=== PATIENT | male | born 1950 | race Caucasian/White ===

== ENCOUNTER → 2021-01-21 11:42 | Outpatient (CLI) | payer MEDICARE, SELFPAY | PROVIDERS: PCP Family Medicine; Visit Provider Nurse Practitioner Adult Health | DX: R97.20 Elevated prostate specific antigen [PSA] (principal) | CPT/HCPCS: 36415; 84153 ==

== ENCOUNTER → 2021-01-31 | Outpatient (CLI) | payer MEDICARE, SELFPAY ==
--- NOTE | 2021-01-31 | IMM_PTH ---
PATIENT: RAE ELLIOTT LOC: [facility] U#:[id number] AGE/SX: 71/M ROOM: RE01/31/[address]: Dr. Rosales Amezquita MD : 1950 BED: DIS: 01/31/2021 SPEC #: [id number] RECD: 02/01/21 12:26 STATUS: STEPHAN REQ #: [id number] NEY: 01/31/21 00:[address]: Rosales Amezquita DEPT: IMMUNOHISTOCHEMISTRY RECD BY: Betzy Shields ENTERED: 02/01/21 12:29 SP TYPE: IMMUNO OTHR DR: Dr. Aguilar Rojas DO Tissues: C - PROSTATE RIGHT Procedures: P40 (add) 34BE12 (initial) PHYSICIAN & INSTITUTION [place] [id number] SPECIMEN INFORMATION: Tissue Source: C - Right prostate, base, core biopsy Clinical Info: Elevated PSA Specimen Number: [id number] CPT code: 72663, 64273 METHODOLOGY: Deparaffinized sections of prefer/formalin-fixed tissue or PAP/DQ stained slides are incubated with monoclonal/polyclonal antibodies/oligonucleotide probes. Localization is made via biotin free immunoperoxidase method. Appropriate controls are performed and reacted as expected. Results on target cell population are indicated in the following table: RESULTS: ANTIBODY / CLONE RESULT Block C P40 (BC28) positive 34BE12 (34BE12) positive These tests were developed and their performance characteristics determined by [facility]. They may not have been cleared or approved by the U.S. Food and Drug Administration. The FDA has determined that such clearance or approval is not necessary. The above immunohistochemical/dualISH markers are ordered and reviewed by the Pathologist. INTERPRETATION: C. Right prostate, base, core biopsy: Negative for malignancy. PATTIE:dennys 02/04/2021
--- NOTE | 2021-01-31 09:30 | PROSBIL_PTH ---
PATIENT: RAE ELLIOTT LOC: [facility] U#:[id number] AGE/SX: 71/M ROOM: RE01/31/[address]: Dr. Rosales Amezquita MD : 1950 BED: DIS: 01/31/2021 SPEC #: [id number] RECD: 01/31/21 10:43 STATUS: STEPHAN REQ #: [id number] NEY: 01/31/21 09:[address]: Rosales Amezquita DEPT: SURGICAL PATHOLOGY RECD BY: Penelope Rodrigez ENTERED: 01/31/21 11:56 SP TYPE: PROST BX ZOYA DR: Dr. Aguilar Rojas DO Tissues: A - PROSTATE RIGHT B - PROSTATE RIGHT C - PROSTATE RIGHT D - PROSTATE LEFT E - PROSTATE LEFT F - PROSTATE LEFT Procedures: PROSTATE BX HEADER OPERATION: Prostate biopsy PRE-OP DIAGNOSIS: R97.20 TISSUE SUBMITTED: A - Right apex, B - Right mid, C - Right base, D - Left apex, E - Left mid, F - Left base MICROSCOPIC DIAGNOSIS A. Right prostate, apex, core biopsy: Prostatic tissue, negative for malignancy. B. Right prostate, mid, core biopsy: Prostatic tissue, negative for malignancy. Focal mild chronic inflammation. C. Right prostate, base, core biopsy: Prostatic tissue, negative for malignancy. See comment. D. Left prostate, apex, core biopsy: Prostatic adenocarcinoma. Levi grade: 3+4=7 Number of cores involved: 2/2 Proportion of tissue involved: ~30% Perineural invasion: Present. Greatest tumor length: 0.3 cm E. Left prostate, mid, core biopsy: Prostatic adenocarcinoma. Levi grade: 3+4=7 Number of cores involved: 1/1 Proportion of tissue involved: ~95% Perineural invasion: Present. Greatest tumor length: 1.3 cm F. Left prostate, base, core biopsy: Prostatic adenocarcinoma. Levi grade: 3+4=7 Number of cores involved: 1/1 Proportion of tissue involved: ~95% Perineural invasion: Present. Greatest tumor length: 1.2 cm SJ:dennys 02/01/2021 COMMENT C. Immunohistochemistry ([id number]) supports the above diagnosis. MICROSCOPIC DESCRIPTION Slides are reviewed. GROSS DESCRIPTION A - Received is one container designated prostate, right apex. The specimen consists of one elongated fragment of light dodge-white soft tissue measuring 1.5 cm in length and 0.1 cm in diameter. The specimen is totally submitted in one cassette. B - Received is one container designated prostate, right mid. The specimen consists of one elongated fragment of light dodge-white soft tissue measuring 1.2 cm in length and 0.1 cm in diameter. The specimen is totally submitted in one cassette. C - Received is one container designated prostate, right base. The specimen consists of one elongated fragments of light dodge-white soft tissue measuring 1.2 cm in length and 0.1 cm in diameter. The specimen is totally submitted in one cassette. D - Received is one container designated prostate, left apex. The specimen consists of two elongated fragments of light dodge-white soft tissue measuring 0.3 and 0.7 cm in length and 0.1 cm in diameter. The specimen is totally submitted in one cassette. E - Received is one container designated prostate, left mid. The specimen consists of one elongated fragment of light dodge-white soft tissue measuring 1.5 cm in length and 0.1 cm in diameter. The specimen is totally submitted in one cassette. F - Received is one container designated prostate, left base. The specimen consists of one elongated fragments of light dodge-white soft tissue measuring 1.5 cm in length and 0.1 cm in diameter. The specimen is totally submitted in one cassette. / SJ:rg 01/31/21 TC:0 [facility]: [id number]
== END | disposition home or self-care (01) ==
LOC: LABSPEC 10:58
PROVIDERS: PCP Family Medicine; Referring Provider Urology; Visit Provider Urology
DX: R97.20 Elevated prostate specific antigen [PSA] (principal)
CPT/HCPCS: 88305; 88341; 88342; G0416

== ENCOUNTER → 2021-02-08 10:14 | Outpatient (CLI) | payer MEDICARE, SELFPAY ==
--- NOTE | 2021-02-08 10:18 | NM_ITS ---
CLINICAL: 71-year-old male with reported history of carcinoma of the prostate. WHOLE BODY 99m Tc MDP RADIONUCLIDE BONE SCINTIGRAPHY COMPARISON: CT of the abdomen-pelvis report 02/08/2021 FINDINGS: Following the intravenous administration of 25.0 mCi of 99m Tc MDP, whole body bone images reveal: 1. Increased radiopharmaceutical concentration is identified in the acromioclavicular and sternoclavicular compartments of both shoulders, glenohumeral compartment of the right shoulder, bilateral wrists, elbows bilaterally, the right knee, fifth lumbar vertebra posteriorly on the left and right, the pubic symphysis. 2. The remaining skeletal structures are scintigraphically unremarkable with normal-appearing renal images and urinary bladder activity identified. Enhanced uptake is defined in the soft tissue compartment of the right hemipelvis likely representing dystrophic calcification. NM/Bone Scan Whole Body IMPRESSION: 1. The increase in radiopharmaceutical concentration identified in the bilateral shoulders, both wrists, right and left elbows, the right knee, fifth lumbar vertebra and pubic symphysis is most consistent with degenerative arthritis. Plain film radiography correlation may be of benefit in the region of the pubic symphysis. 2. There is no definitive typical scintigraphic evidence of diffuse axial skeletal metastatic disease on the current examination. Electronically Signed: Frederic Minaya DO at 10:30 EDT Tel , Service support ,
--- NOTE | 2021-02-08 10:30 | CT_ITS ---
STUDY: CT ABDOMEN AND PELVIS WITH CONTRAST REASON FOR EXAM: Male, 71 years old. MALIGNANT NEOPLASM OF PROSTATE RADIATION DOSAGE (If Supplied By Facility): CTDIvol = ( 9.75 ) mGy, DLP = ( 799.02 ) mGycm TECHNIQUE: Transaxial images were obtained from the dome of the diaphragm to the symphysis pubis without oral contrast. IV 100mL Isovue-300 was administered. Sagittal and coronal images were reconstructed. Individualized dose optimization techniques were used for this CT. COMPARISON: None. FINDINGS: 2 mm calcific granuloma in the anterior aspect of the right middle lobe. Mild degree of scarring in the anterior aspect of the left lower lobe. The visualized portions of the heart are within normal limits. Normal liver. Normal gallbladder and extrahepatic biliary system. There are multiple benign calcified granulomata of the spleen. Normal pancreas. Normal bilateral adrenal glands. Normal right kidney. Normal left kidney. There is a small hiatal hernia. Normal small intestine. Normal colon. The appendix is visualized and appears normal. There is diffuse atherosclerotic calcification of the abdominal aorta, without a demonstrated aneurysm. Normal inferior vena cava. Normal retroperitoneum. Diffuse circumferential wall thickening of the urinary bladder. Marked enlargement of the prostate. The prostate measures 7.3 cm x 5.5 cm. This causes indentation at the bladder base. I cannot rule out a polypoid lesion at the bladder base. Normal abdominal wall. There are diffuse degenerative changes of the visualized lumbar spine. Minimal loss of height of the superior endplate of the L4 vertebrae. CT/Abdomen/Pelvis W IV Cont ONLY IMPRESSION: Marked degree of enlargement of the prostate with indentation at the bladder base. Diffuse bladder wall thickening. Electronically Signed: Kadeem Guardado MD at 13:42 EDT , Service support ,
[2021-02-08 13:35] LABS: CREATININE FINGERSTICK 0.6 mg/dL (0.70-1.30); EGFR FINGERSTICK > 60.0000 mL/min (>60)
== END ==
PROVIDERS: PCP Family Medicine; Referring Provider Urology; Visit Provider Urology
DX: C61 Malignant neoplasm of prostate (principal)
CPT/HCPCS: 74177; 78306; A9503; Q9967; A4216

== ENCOUNTER → 2021-12-16 | Outpatient (CLI) | payer MEDICARE, SELFPAY ==
--- NOTE | 2021-12-16 07:39 | EKG12_ITS ---
Test Reason : PREOP Blood Pressure : / mmHG Vent. Rate : 056 BPM Atrial Rate : 056 BPM P-R Int : 120 ms QRS Dur : 086 ms QT Int : 414 ms P-R-T Axes : 000 041 053 degrees QTc Int : 399 ms Ectopic Atrial Bradycardia Confirmed by ALONDRA RICK, ALISA ([id number]), multimedia editor ALISA العراقي ([id number]) on 12/17/2021 7:39:39 AM Referred By: Reid Martínez Confirmed By:ALISA CANTU MD
[2021-12-16 08:22] LABS: Hemoglobin 13.2 g/dL (13.0-16.5); Mean Corp Hgb Conc 32.2 g/dL (32-36); Mean Corpuscular Hgb 29.1 pg (27.0-32.0); Mean Corpuscular Volume 90.3 fL (80-94); Mean Platelet Vol. 9.6 fl (6.2-12.0); Platelet Count 234 K/mm3 (150-450); RBC Distribution Width CV 12.7 % (11.6-14.6); RBC Distribution Width SD 41.8 fl (35.1-43.9); Red Blood Count 4.54 M/mm3 (4.6-6.2); White Blood Count 4.6 K/mm3 (4.4-11.0)
[2021-12-16 08:51] LABS: Anion Gap 5 (5-15); BUN 18 mg/dL (7-18); Calcium,Total 8.6 mg/dL (8.5-10.1); Chloride 104 mmol/L (98-107); Creatinine, Serum 0.86 mg/dL (0.70-1.30); EST Glomerular Filtration Rate 94 mL/min (>60); Est Glom Filt Rate - Afr Amer 114 mL/min (>60); Glucose 95 mg/dL (74-106); Potassium 4.3 mmol/L (3.5-5.1); Sodium Level 138 mmol/L (136-145)
== END | disposition home or self-care (01) ==
LOC: PSN 07:35
PROVIDERS: PCP Family Medicine; Referring Provider Otolaryngology; Visit Provider Otolaryngology
DX: Z01.810 Encounter for preprocedural cardiovascular examination (principal)
CPT/HCPCS: 36415; 80048; 85027; 93005

== ENCOUNTER → 2023-06-08 | Outpatient (CLI) | payer MEDICARE, SELFPAY ==
--- OUTSIDE RECORDS SUMMARY | 2023-06-08 09:07 | XMS RPT_ITS | CCD ---
Author Name Unknown Address [address] [place] [address] Organization [facility] Results Test Name Value Interpretation Reference Range Facil ity Summary Purpose Family History No Family History Records Found Advance Directives No Advanced Directives Records Found Additional Source Comments (unrecognized sect ion and content) No Status Records Found INFORMATION SOURCE (unrecogn ized section and content) FOR RECORDS PERTAINING TO PATIENTS WHO ARE OR HAVE BEEN ENROLLED IN A CHEMICAL DEPENDENCY/SUBSTANCEABUSE PROGRAM, SOME INFORMATION MAY BE OMITTED. This clinical summary was aggregated from multiple sources. Caution should be exercised in using it in the provision of clinical care. This summary normalizes information from multiple sources, and as a consequence, information in this document may materially change the coding, format and clinical context of patient data. In addition, data may be omitted in some cases. CLINICAL DECISIONS SHOULD BE BASED ON THE PRIMARY CLINICAL RECORDS. [employer] provides no warranty or guarantee of the accuracy or completeness of information in this document.
== END | disposition home or self-care (01) ==
LOC: LAB 08:45
PROVIDERS: PCP Family Medicine; Referring Provider Urology; Visit Provider Urology
DX: C61 Malignant neoplasm of prostate (principal)
CPT/HCPCS: 36415; 84153

== ENCOUNTER → 2023-06-16 | Outpatient (CLI) | payer MEDICARE, SELFPAY ==
--- NOTE | 2023-06-16 09:00 | PET_ITS ---
EXAMINATION: F18 PSMA PET-CT INDICATIONS: A 73-year-old male with history of primary prostate carcinoma presenting for apparent initial staging examination. COMPARISON: None available INDEX LESION SIZE SUV PROMISE SCORE INTERPRETATION Left and right periclavicular region 17.3 mm 19.4 3 Fulfills quantitative criteria for viable neoplasm. Mediastinum and bilateral thoracic perihilum 22.4 mm 21.36 3 Fulfills quantitative criteria for viable neoplasm. Prostate gland 23.5 mm 44.7 3 Fulfills quantitative criteria for viable neoplasm. Seminal vesicles, rectum 54.1 mm 23.32 3 Fulfills quantitative criteria for viable neoplasm Abdominal retroperitoneum and bilateral hemipelvis 40.3 mm 29.9 3 Fulfills quantitative criteria for viable neoplasm. Multifocal skeletal structures 18.56 2 Quantitative criteria for viable neoplasm are fulfilled. TECHNIQUE: Following the intravenous administration of 9.35 mCi of PSMA-Pylarify via the left hand, image acquisitions of the head, neck, chest, abdomen and pelvis to the level of the mid thigh at 73 minutes post-tracer distribution reveal: The examination was interpreted using the EANM (Dagmar et al., Journal of Nuclear Medicine Molecular Imaging 44:1622, 2017) and PROMISE (Eilisa et al., Journal of Nuclear Medicine 59:469, 2018) interpretive criteria. HEIGHT: 70 inches. WEIGHT: 157 lbs. PSMA expression score PROMISE criteria: High (3): SUV ? parotid-salivary gland, intermediate (2): SUV ? liver, low (1): > blood pool, < liver, (0): < blood pool. SUV reference values: Parotid glands: 20.13 Normal liver parenchyma: 6.2 Blood pool: 2.0 FINDINGS: Head/Neck: Symmetric tracer concentration is defined in the bilateral parotid and submandibular glands, the nasal cavity. There is no evidence of abnormal increased radiopharmaceutical concentration within the context of the cranial vault. CHEST: Facilitated tracer uptake is noted in the bilateral periclavicular regions. The calculated maximum standard uptake value is 19.4. The PROMISE score approximates 3. The maximum axial diameter of the largest metabolic, morphologic abnormality is 17.3 mm. Facilitated uptake is noted in the pre-subcarinal mediastinum and bilateral thoracic perihilum generating a calculated maximum standard uptake value of 21.36. The PROMISE score is 3. The maximum axial diameter of the largest corresponding soft tissue density is 22.[address] findings are as follows. Calcified soft tissue densities are ametabolic. Atherosclerotic calcification is defined in the thoracic aorta without evidence of dilatation, aneurysm formation. Coronary arterial calcification is observed. There are no parenchymal densities-nodules defined in the right and left hemithorax with quantitative significant increased FDG uptake. Abdomen/Pelvis: Facilitated uptake is noted in the prostate gland to the right of the midline extending from the mid gland to base. The calculated maximum standard uptake value is 44.7. The PROMISE score is 3. The maximum axial diameter of the metabolic abnormality is 23.5 mm. Enhanced tracer is identified in the lower pelvis associated with the seminal vesicle to the left and right of midline and rectal vault. The calculated maximum standard uptake value is 23.32. The PROMISE score is 3. The maximum axial diameter of the metabolic, morphologic abnormality is 54.1 mm. There is augmentation radiopharmaceutical observed in in the upper abdomen retrocrural in distribution and upper-lower abdominal retroperitoneum and bilateral hemipelvis generating a calculated maximum standard uptake value of 29.9. The PROMISE score is 3. The maximum axial diameter of the largest metabolic, morphologic abnormality is 40.3 mm. Physiologic tracer uptake is manifest in the hepatic and splenic parenchyma, bilateral renal units, urinary bladder, and visualized intestinal tract. Abdomen and pelvis CT findings are as follows. There is atherosclerotic calcification defined in the abdominal aorta without evidence of dilatation-aneurysm formation. Pelvic arterial calcification is observed. Right and left inguinal soft tissue densities are ametabolic. Calcification is demonstrated in the base of the prostate gland to the left and right of midline. Calcified granuloma formation is noted within the splenic parenchyma. Skeletal: Facilitated uptake is noted in the axial skeleton multifocal in presentation generating a calculated maximum standard uptake value of 18.56. The PROMISE score is 2. PET/PET/CT Tumor WB Initial IMPRESSION: 1. ABNORMAL EXAMINATION INDICATIVE OF MALIGNANT-VIABLE NEOPLASM. 2. Increased tracer demonstrated in the left and right periclavicular regions fulfills quantitative criteria for viable neoplasm. 3. Enhanced forming labeled radiopharmaceutical visualized in the mediastinal structures and bilateral thoracic perihilum fulfills quantitative criteria for malignant transformation. 4. Facilitated uptake noted in the prostate gland, the rectum, and seminal vesicles fulfills quantitative criteria for viable neoplastic infiltration. 5. Increased radiotracer in the abdominal retroperitoneum and bilateral hemipelvis fulfills quantitative criteria for viable neoplasia. 6. Osseous skeletal hypermetabolic foci fulfills quantitative criteria for viable osseous neoplastic disease. Electronic Signature Frederic Minaya D.O. Accurate Quantification of SUVs and standardized PROMISE scores for this report are calculated using the exclusive [employer], ([place]. Patent No. [phone] [place] patent [phone] ). Standardization and correction of the FDG SUV metric exclusively available with [employer] intellectual property, allow for vendor non-specific objective quantitative sequential FDG PET-CT comparison and otherwise unobtainable optimization of the sensitivity and specificity of the examination. https://[employer] Electronically Signed: Frederic Minaya DO at 15:07 EST ,
--- OUTSIDE RECORDS SUMMARY | 2023-06-16 09:07 | XMS RPT_ITS | CCD ---
Author Name Unknown Address [address] [place] [address] Organization [facility] Results Test Name Value Interpretation [...] BE BASED ON THE PRIMARY CLINICAL RECORDS. [employer] provides no warranty or guarantee of the accuracy or completeness of information in this document.
== END | disposition home or self-care (01) ==
PROVIDERS: PCP Family Medicine; Referring Provider Urology; Visit Provider Urology
DX: C61 Malignant neoplasm of prostate (principal)
CPT/HCPCS: 78816; A9595

== ENCOUNTER → 2023-08-15 | Outpatient (CLI) | payer MEDICARE, SELFPAY ==
[2023-08-15 10:41] LABS: Hematocrit 39.2 % (40-54); Hemoglobin 12.6 g/dL (13.0-16.5); Mean Corp Hgb Conc 32.1 g/dL (32-36); Mean Corpuscular Volume 87.1 fL (80-94); Mean Platelet Vol. 9.8 fl (6.2-12.0); Platelet Count 239 K/mm3 (150-450); RBC Distribution Width CV 13.2 % (11.6-14.6); RBC Distribution Width SD 41.9 fl (35.1-43.9); White Blood Count 5.5 K/mm3 (4.4-11.0)
[2023-08-15 11:20] LABS: Anion Gap 4 (5-15); BUN 27 mg/dL (7-18); BUN/Creat Ratio 27.6 RATIO (10-20); Calcium,Total 9.1 mg/dL (8.5-10.1); Chloride 107 mmol/L (98-107); Creatinine, Serum 0.98 mg/dL (0.70-1.30); EST Glomerular Filtration Rate 80 mL/min (>60); Est Glom Filt Rate - Afr Amer 97 mL/min (>60); Glucose 101 mg/dL (74-106); Sodium Level 138 mmol/L (136-145)
== END | disposition home or self-care (01) ==
PROVIDERS: PCP Family Medicine; Referring Provider Urology; Visit Provider Urology
DX: R97.20 Elevated prostate specific antigen [PSA] (principal)
CPT/HCPCS: 36415; 80048; 84153; 85027

== ENCOUNTER → 2023-09-30 | Outpatient (CLI) | payer MEDICARE, SELFPAY ==
[2023-09-30 18:20] LABS: CRP < 2.90 mg/L (0.0-3.0)
[2023-10-02 15:08] LABS: Endomysial Antibody IgA Negative (Negative); Immunoglobulin A 116 mg/dL (61-437); t-Transglutaminase IgA <2 U/mL (0-3)
== END | disposition home or self-care (01) ==
LOC: LAB 14:15 → MTLAB 15:37
PROVIDERS: PCP Family Medicine; Referring Provider Urology; Visit Provider Urology
DX: R19.7 Diarrhea, unspecified (principal); R97.20 Elevated prostate specific antigen [PSA]
CPT/HCPCS: 36415; 82784; 83516; 84153; 86140; 86255

== ENCOUNTER → 2023-10-02 | Outpatient (CLI) | payer MEDICARE, SELFPAY | END | disposition home or self-care (01) | LOC: MTLAB 08:24 | PROVIDERS: PCP Family Medicine; Referring Provider Internal Medicine Gastroenterology; Visit Provider Internal Medicine Gastroenterology | DX: R19.7 Diarrhea, unspecified (principal) | CPT/HCPCS: 82705; 83993 ==

== ENCOUNTER 2023-11-14 12:53 | Emergency (ER) | payer MEDICARE, SELFPAY ==
[2023-11-14 12:54] VITALS: BP 132/92; PULSE 62; RESP 10; TEMP 35.6; O2SAT 95; BMI 24.0
--- NOTE | 2023-11-14 13:02 | EKG12_ITS ---
Test Reason : SYNCOPE Blood Pressure : / mmHG Vent. Rate : 061 BPM Atrial Rate : 061 BPM P-R Int : 094 ms QRS Dur : 082 ms QT Int : 456 ms P-R-T Axes : 000 024 030 degrees QTc Int : 459 ms Sinus rhythm with sinus arrhythmia with short NE Otherwise normal ECG Confirmed by KY RICK, LESLEY ([id number]), newspaper editor managing FLORENTIN SHEPHERD ([id number]) on 11/17/2023 2:14:57 PM Referred By: Confirmed By:SEPIDEH MCPHERSON MD
--- NOTE | 2023-11-14 13:02 | RAD_ITS ---
HISTORY: cough. TECHNIQUE: XR Chest 2 Views. COMPARISON: None. FINDINGS: CARDIOMEDIASTINAL BORDERS: Cardiac silhouette within normal limits in size. Mediastinal contour unremarkable. LUNGS: Mild linear bibasilar opacities. PLEURA: No pleural effusion or pneumothorax seen. OSSEOUS STRUCTURES: Degenerative change. RAD/Chest PA and Lateral IMPRESSION: Mild bibasilar atelectasis or inflammation. Electronically Signed: Tanya Shaver MD at 14:04 EDT ,
--- NOTE | 2023-11-14 13:03 | EX.ED.DYSGE1 ---
HPI <MADELINE Bolanos - Last Filed: 11/14/23 14:58> History of Present Illness Chief Complaint: Syncope Narrative Narrative: Patient is a 73-year-old male with history of prostate cancer who is currently being treated by [facility] and also goes to [place] and receives treatment there. Patient states he currently has an implant in from the [place] clinic. Patient states today, he was able to get up, he felt well, he biked to a flea market, he did not eat breakfast which is what he normally does, then when he sat down to eat lunch, he felt dizzy, developed diaphoresis, and thought he was going to pass out. Secondary to him not feeling well, the patrons at the restaurant called the ambulance. Patient states he feels slightly better now. He does feel slightly weak. Denies any chest pain, shortness of breath. PFSH <MADELINE Bolanos - Last Filed: 11/14/23 14:58> [facility]LY [facility], [facility] Medical History (Updated 11/14/23 @ 14:58 by MADELINE Bolanos) Prostate cancer Home Medications ?Medication ?Instructions ?Recorded ?Last Taken ?Type NK 11/14/23 Unknown History Allergy/AdvReac Type Severity Reaction Status Date / Time No Known Allergies Allergy Verified 11/14/23 12:54 Social History Smoking Status: Never smoker ROS <MADELINE Bolanos - Last Filed: 11/14/23 14:58> ROS ED ROS Narrative Constitutional: Negative for fever, chills, weight loss, weakness Eyes: Negative for vision loss, vision change, double vision ENT: Negative for any sore throat, ear pain, congestion Cardiovascular: Negative for any chest pain, tightness, palpitations Respiratory: Negative for any cough, sputum production, hemoptysis, dyspnea, dyspnea on exertion, orthopnea Gastrointestinal: Negative for any abdominal pain, nausea, vomiting, diarrhea, constipation, blood in stool, blood in vomit : Negative for any urinary frequency, dysuria, retention, blood in urine Muscle skeletal: Negative for any neck pain, back pain Neurological: Negative for any headache, syncope. Positive for dizziness, near syncope Skin: Negative for any rashes, itching, abrasions, lacerations Psychiatric: Negative for any depression, anxiety, stress, suicidal ideation, homicidal ideation Hematologic: Negative for any excessive bruising, easy bleeding EXAM <MADELINE Bolanos - Last Filed: 11/14/23 14:58> Physical Exam Narrative Exam Narrative: Vital signs reviewed. Vital signs are stable, patient is in no obvious distress. Patient dates he feels generally normal. HEET: Head normocephalic atraumatic, TMs clear bilaterally. Posterior pharynx is clear, moist mucous membranes. Nares clear bilaterally. Neck: Supple with no lymphadenopathy or tenderness. No signs of meningismus. Cardiac: Regular rate and rhythm no murmurs gallops or rubs, equal peripheral pulses bilaterally. Respiratory: Lungs clear to auscultation bilaterally. No chest tenderness. Abdomen: Soft, nontender, nondistended. No abdominal bruit or pulsatile masses. No hepatosplenomegaly Extremities: No peripheral edema, no signs of gross trauma or deformity. Active full range of motion of all extremities. Neuro: Cranial nerves II through XII intact, no focal neurological deficits. Skin: Clean dry and intact with no rash, purpura, petechiae, vesicles or pustules. Backs/flank: No CVA tenderness, no midline spinal tenderness, no deformity. Psych: Normal mood and affect. No SI, HI or acute psychosis. Const Vital Signs: 11/14/23 12:54 11/14/23 12:58 11/14/23 13:53 Temperature 96.1 F L Temperature Source Oral Pulse Rate 62 57 L Respiratory Rate 10 L 14 Respiratory Effort Normal Respiratory Pattern Normal Blood Pressure 132/92 H 124/77 H Blood Pressure Mean 105 92 Pulse Ox 95 97 Oxygen Delivery Method Room Air 11/14/23 14:00 11/14/23 14:50 Temperature 97.7 F L Temperature Source Pulse Rate 57 L 62 Respiratory Rate 16 14 Respiratory Effort Respiratory Pattern Blood Pressure 124/77 H 124/77 H Blood Pressure Mean 92 92 Pulse Ox 98 98 Oxygen Delivery Method Room Air <Dr. Camilo Quiles, - Last Filed: 11/14/23 17:48> Physical Exam Const Vital Signs: 11/14/23 12:54 11/14/23 12:58 11/14/23 13:53 Temperature 96.1 F L Temperature Source Oral Pulse Rate 62 57 L Respiratory Rate 10 L 14 Respiratory Effort Normal Respiratory Pattern Normal Blood Pressure 132/92 H 124/77 H Blood Pressure Mean 105 92 Pulse Ox 95 97 Oxygen Delivery Method Room Air 11/14/23 14:00 11/14/23 14:50 Temperature 97.7 F L Temperature Source Pulse Rate 57 L 62 Respiratory Rate 16 14 Respiratory Effort Respiratory Pattern Blood Pressure 124/77 H 124/77 H Blood Pressure Mean 92 92 Pulse Ox 98 98 Oxygen Delivery Method Room Air [facility] <Umang RuizMADELINE - Last Filed: 11/14/23 14:58> [facility] Lab Data Labs: Laboratory Results - last 24 hr 11/14/23 11/14/23 13:05 14:00 WBC 4.4 RBC 4.16 L Hgb 12.0 L Hct 36.9 L MCV 88.7 MCH 28.8 MCHC 32.5 RDW Std Deviation 41.8 RDW Coeff of Kathy 12.8 Plt Count 187 MPV 9.2 Immature Gran % (Auto) 0.700 Neut % (Auto) 62.0 Lymph % (Auto) 24.0 Russell % (Auto) 11.0 H Eos % (Auto) 1.8 Baso % (Auto) 0.5 Absolute Neuts (auto) 2.7 Absolute Lymphs (auto) 1.05 Nucleated RBC % 0 Sodium 140 Potassium 4.0 Chloride 110 H Carbon Dioxide 27.0 Anion Gap 3 L BUN 25 H Creatinine 1.13 Estim Creat Clear Calc 61.91 Est GFR (MDRD) Af Amer 82 Est GFR (MDRD) Non-Af 68 BUN/Creatinine Ratio 22.1 H Glucose 126 H Calcium 9.2 Troponin I High Sens 7 Urine Color Yellow Urine Clarity Clear Urine pH 5.0 Ur Specific [place] 1.020 Urine Protein 15 H Urine Glucose (UA) Normal Urine Ketones Negative Urine Occult Blood Negative Urine Nitrite Negative Urine Bilirubin Negative Urine Urobilinogen Normal Ur Leukocyte Esterase Negative Urine RBC 0 SEEN Urine WBC 0-5 SEEN Ur Squamous Epith Cells 0 SEEN Urine Bacteria 0 SEEN Urine Mucus 0 SEEN Radiography Diagnostic Testing: Clinical Impression(s) from Imaging Studies Chest X-Ray 11/14/23 13:02 IMPRESSION: Mild bibasilar atelectasis or inflammation. Electronically Signed: Tanya Shaver MD at 14:04 EDT , EKG Sinus rhythm with sinus arrhythmia: Attestation: I personally reviewed and interpreted this EKG as follows: Comments: Sinus rhythm with sinus arrhythmia, rate of 61 bpm, NE interval 94 ms, QRS duration 82 ms, no acute ST elevation, no acute infarct noted. Treatment and Re-Evaluation :: Differential diagnosis includes however is not limited to: Near syncope, PE, ACS, SD, electrolyte abnormality, dehydration Patient appears to be in no obvious distress, vital signs are stable patient is nontoxic-appearing. Presenting to the emergency department with complaints of a near syncopal episode while at a restaurant. Speaking with the patient, he says he does normally eat breakfast however today he did not. He did bike to a flea market, is also hot outside. Patient will receive a cardiac workup, as well as IV fluids. Patient will be reevaluated. Patient CBC was stable. Slightly anemia however this is chronic. Patient's chemistries were unremarkable, creatinine was 1.13, patient's glucose 126 with a troponin of 7 which is negative. EKG was unremarkable. No evidence of any ACS or SD. Urinalysis was negative for any infection. After IV fluids, send in the ED, patient felt much better. I believe this is likely due to the patient exerting himself, the hot sun, as well as not eating and drinking normally. Patient is happy with the plan of care, feels well to discharge. Will return for any worsening symptoms. <Dr. Camilo Quiles, DO - Last Filed: 11/14/23 17:48> [facility] Lab Data Labs: Laboratory Results - last 24 hr 11/14/23 11/14/23 13:05 14:00 WBC 4.4 RBC 4.16 L Hgb 12.0 L Hct 36.9 L MCV 88.7 MCH 28.8 MCHC 32.5 RDW Std Deviation 41.8 RDW Coeff of Kathy 12.8 Plt Count 187 MPV 9.2 Immature Gran % (Auto) 0.700 Neut % (Auto) 62.0 Lymph % (Auto) 24.0 Russell % (Auto) 11.0 H Eos % (Auto) 1.8 Baso % (Auto) 0.5 Absolute Neuts (auto) 2.7 Absolute Lymphs (auto) 1.05 Nucleated RBC % 0 Sodium 140 Potassium 4.0 Chloride 110 H Carbon Dioxide 27.0 Anion Gap 3 L BUN 25 H Creatinine 1.13 Estim Creat Clear Calc 61.91 Est GFR (MDRD) Af Amer 82 Est GFR (MDRD) Non-Af 68 BUN/Creatinine Ratio 22.1 H Glucose 126 H Calcium 9.2 Troponin I High Sens 7 Urine Color Yellow Urine Clarity Clear Urine pH 5.0 Ur Specific [place] 1.020 Urine Protein 15 H Urine Glucose (UA) Normal Urine Ketones Negative Urine Occult Blood Negative Urine Nitrite Negative Urine Bilirubin Negative Urine Urobilinogen Normal Ur Leukocyte Esterase Negative Urine RBC 0 SEEN Urine WBC 0-5 SEEN Ur Squamous Epith Cells 0 SEEN Urine Bacteria 0 SEEN Urine Mucus 0 SEEN Radiography Diagnostic Testing: Clinical Impression(s) from Imaging Studies Chest X-Ray 11/14/23 13:02 IMPRESSION: Mild bibasilar atelectasis or inflammation. Electronically Signed: Tanya Shaver MD at 14:04 EDT Reading Location ID and State: [facility] / [place] Tel , Service support , Treatment and Re-Evaluation :: Differential diagnosis includes however is not limited to: Near syncope, PE, ACS, SD, electrolyte abnormality, dehydration Patient appears to be in no obvious distress, vital signs are stable patient is nontoxic-appearing. Presenting to the emergency department with complaints of a near syncopal episode while at a restaurant. Speaking with the patient, he says he does normally eat breakfast however today he did not. He did bike to a flea market, is also hot outside. Patient will receive a cardiac workup, as well as IV fluids. Patient will be reevaluated. Patient CBC was stable. Slightly anemia however this is chronic. Patient's chemistries were unremarkable, creatinine was 1.13, patient's glucose 126 with a troponin of 7 which is negative. EKG was unremarkable. No evidence of any ACS or SD. Urinalysis was negative for any infection. After IV fluids, send in the ED, patient felt much better. I believe this is likely due to the patient exerting himself, the hot sun, as well as not eating and drinking normally. Patient is happy with the plan of care, feels well to discharge. Will return for any worsening symptoms. This patient was seen with a PA/ENGINEERING SYSTEMS ANALYST Individually assessed they patient including history and physical. I have reviewed everything on the chart that is available and agree with the documentation provided by the PA/ENGINEERING SYSTEMS ANALYST including discussion about the assessment, treatment plan, discussion, and return precautions. Differential as above. Patient presenting the felt near syncopal. CBC and BMP unremarkable. High-sensitivity troponin 7. EKG interpreted by myself shows a sinus rhythm at 61 bpm without sign of ischemic change. Chest x-ray interpreted by myself shows no acute cardiopulmonary process. Radiologist interprets this as bibasilar atelectasis or inflammation. Patient is feeling much better after IV fluids. I think he stable for discharge home. Discharge Plan Triage Chief Complaint: Syncope ED Midlevel Provider: Umang Ruiz ED Provider: Camilo Quiles Dx/Rx/DC Orders Clinical Impression: Near syncope Instructions: Causes of Syncope, ED Fainting, Uncertain Cause Prescriptions: No Action NK Primary Care Provider: Aguilar Rojas Referrals: Aguilar Rojas, [Primary Care Provider] - Activity Restrictions/Additional Instructions: Please maintain your fluids, take it easy today. Return for any worsening symptoms. Print Language: Macedonian Disposition Disposition: Home, Self Care Discharge Date/Time: 11/14/23 15:00
[2023-11-14] MEDS: 0.9% Normal Saline (1000mL) 1,000 ML 999 ML IV (13:05)
[2023-11-14 13:14] LABS: Absolute Lymphocyte Count 1.05 X10^3/uL (0.83-4.51); Absolute Neutrophil Count 2.7 X10^3/uL (2.0-7.7); Basophil# 0.02 X10^3/uL; Basophil% 0.5 % (0-1); Eosinophil# 0.08 X10^3/uL; Eosinophils% 1.8 % (0-5); Hematocrit 36.9 % (40-54); Lymphocyte # 1.05 X10^3/ul (0.83-4.51); Mean Corp Hgb Conc 32.5 g/dL (32-36); Mean Corpuscular Hgb 28.8 pg (27.0-32.0); Mean Corpuscular Volume 88.7 fL (80-94); Mean Platelet Vol. 9.2 fl (6.2-12.0); Monocyte# 0.48 X10^3/uL; NRBC Flagged by Analyzer 0 % (0-5); Neutrophil # 2.72 X10^3/uL (2.7-7.7); Platelet Count 187 K/mm3 (150-450); RBC Distribution Width CV 12.8 % (11.6-14.6); RBC Distribution Width SD 41.8 fl (35.1-43.9); Red Blood Count 4.16 M/mm3 (4.6-6.2); White Blood Count 4.4 K/mm3 (4.4-11.0)
[2023-11-14 13:30] LABS: Anion Gap 3 (5-15); BUN 25 mg/dL (7-18); BUN/Creat Ratio 22.1 RATIO (10-20); Calcium,Total 9.2 mg/dL (8.5-10.1); Chloride 110 mmol/L (98-107); Creatinine, Serum 1.13 mg/dL (0.70-1.30); EST Glomerular Filtration Rate 68 mL/min (>60); Est Glom Filt Rate - Afr Amer 82 mL/min (>60); Estimated Creatinine Clearance 61.91 ml/min; Glucose 126 mg/dL (74-106); Sodium Level 140 mmol/L (136-145); Troponin-I HS 7 pg/mL (3.0-78.0)
[2023-11-14 13:53] VITALS: BP 124/77; PULSE 57; RESP 14; O2SAT 97
[2023-11-14 14:00] VITALS: BP 124/77; PULSE 57; RESP 16; O2SAT 98
[2023-11-14 14:22] LABS: Bacteria 0 SEEN /hpf (None Seen); Mucous, Urine 0 SEEN /hpf (<or=2+); Red Blood Cells-Urine 0 SEEN /hpf (0-5); Squamous Epithelial Cells - UA 0 SEEN /hpf (0-5)
[2023-11-14 14:25] LABS: Color, Urine Yellow (Yellow); Glucose, Dipstick Normal (Normal); Ketone-Dipstick Negative (Negative); Leukocyte Esterase-Dipstick Negative /ul (Negative); Nitrite-Dipstick Negative (Negative); Occult Blood-Urine Negative /ul (Negative); Protein-Dipstick 15 mg/dl (Negative); Urine Bilirubin Dipstick Negative (Negative); Urine Clarity Clear (Clear); Urine Urobilinogen Normal (Normal)
[2023-11-14 14:32] VITALS: O2SAT 98
[2023-11-14 14:36] LABS: White Blood Cells 0-5 SEEN /hpf (0-5)
[2023-11-14 14:50] VITALS: BP 124/77; PULSE 62; RESP 14; TEMP 36.5; O2SAT 98
== END 2023-11-14 15:00 | disposition home or self-care (01) ==
PROVIDERS: Nurse Practitioner; Emergency Provider Student in an Organized Health Care Education/Training Program; PCP Family Medicine; Visit Provider Student in an Organized Health Care Education/Training Program
DX: R55 Syncope and collapse (principal)
CPT/HCPCS: 71046; 80048; 81001; 84484; 85025; 93005; 96360; 96361; 99284; J7030

== ENCOUNTER → 2024-04-29 | Outpatient (CLI) | payer MEDICARE, SELFPAY | END | disposition home or self-care (01) | LOC: LAB.FUTURE 10:23 → LAB 10:24 | PROVIDERS: PCP Family Medicine; Referring Provider Urology; Visit Provider Urology | DX: R97.20 Elevated prostate specific antigen [PSA] (principal) | CPT/HCPCS: 36415; 84153 ==

== ENCOUNTER → 2024-07-28 | Outpatient (CLI) | payer MEDICARE, SELFPAY | END | disposition home or self-care (01) | LOC: LAB 08:00 | PROVIDERS: PCP Family Medicine; Referring Provider Nurse Practitioner; Visit Provider Nurse Practitioner | DX: C61 Malignant neoplasm of prostate (principal) | CPT/HCPCS: 36415; 84153 ==

== ENCOUNTER → 2024-11-05 | Outpatient (CLI) | payer MEDICARE, SELFPAY ==
--- OUTSIDE RECORDS SUMMARY | 2024-11-05 09:47 | XMS RPT_ITS | CCD ---
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 Sheikh Primary Care Provider Alirio RICK, Dr. Rosales Núñez Attending Provider Alirio RICK, Dr. Rosales Núñez Referring Provider [place], Marii Attending Provider [place], Marii Referring Provider Bob, Aguilar Primary Care Unavailable Alirio, Rosales Núñez Attending Unavailable Alirio, Rosales Núñez Referring Unavailable [place], Marii Attending Unavailable [place], Marii Referring Unavailable Bob, Aguilar Primary Care Unavailable Bob, Aguilar Primary Care Unavailable Alirio, Rosales Núñez Attending Unavailable Alirio, Rosales Núñez Referring Unavailable Bob, Aguilar Primary Care Unavailable Rome Alves Consulting Unavailable Alirio, Rosales Núñez Attending Unavailable Alirio, Rosales Núñez Referring Unavailable Rome Alves Attending Unavailable Rome Alves Referring Unavailable Bob, Aguilar Primary Care Unavailable Alirio, Rosales Núñez Referring Unavailable Alirio, Rosales Núñez Attending Unavailable Bob, Aguilar Primary Care Unavailable Camilo Quiles Attending Unavailable Bob, Aguilar Primary Care Unavailable Problems Active Problems Problem Classification Problem Date Documented Da te Episodic/Chronic Cancer of prostate (1 source) Malignant neoplasm of prostate; Translations: [Malignant neoplasm of prostate] Onset: 08-02-2024 Chronic Other screening for suspected conditions (not mental disorders or infectious disease) (1 source) Elevated prostate specific antigen [PSA]; Translations: [Elevated prostate specific antigen [PSA]] Onset: 05-23-2024 Episodic Past or Other Problems Problem Classification Problem Date Documented Da te Episodic/Chronic Other gastrointestinal disorders (3 sources) Diarrhea, unspecified; Translations: [Diarrhea, unspecified] Onset: 08-07-2023 Episodic Syncope (2 sources) Near syncope; Translations: [Syncope and collapse] Onset: 12-05-2023 11-22-2023 Episodic Results Test Name Value Interpretation Reference Range Facility Diagnostic total prostate sp ecific antigen (PSA) measurementOrdered By: Marii Garza on 07-28-2024 Prostate Specific Antigen Total 55.30 ng/mL High 0.00-4.00 [facility] Comment on above: This test was perfor med using the [employer] tPSA method. Measured values of a patient sample can vary depending on the testing procedure used. PSA values determined on patient samples by different testing procedures cannot be used interchangeably. If there is a change in PSA assays while monitoring therapy, sequential testing should be performed to confirm baseline values. PSA,Total- [employer]icon 07-19 PSA, DIAGNOSTIC 55.30 ng/mL High 0.00-4.00 [facility] Comment on above: Result Comment: This test was performed using the [employer] tPSA method. Measured values of a patient??sample can vary depending on the testing procedure used. PSA values determined on patient samples by different testing procedures cannot be used interchangeably. If there is a change in PSA assays while monitoring therapy, sequential testing should be performed to confirm baseline values. Performed By: #### L 501.6710, L501.9940, L3410.2400 #### [facility] [facility]. [place], [place], [id number] Diagnostic total prostate sp ecific antigen (PSA) measurementOrdered By: Rosales Amezquita on 04-29-2024 Prostate Specific Antigen Total 72.90 ng/mL High 0.0-4.0 [facility] Comment on above: This test was perfor med using the TPSA assay method for thePipelineDB chemistry system. Values obtained with differentassay methods cannot be used interchangably.When changing PSA assays in the course of monitoring apatient, additional sequential testing should be carriedout to confirm baseline values. PSA,Total- Diagnosticon 04-20 PSA, DIAGNOSTIC 72.90 ng/mL High 0.0-4.0 [facility] Comment on above: Result Comment: This test was performed using the TPSA assay method for the [employer] chemistry system. Values obtained with different assay methods cannot be used interchangably. When changing PSA assays in the course of monitoring a patient, additional sequential testing should be carried out to confirm baseline values. Performed By: #### L 501.9940 #### [facility] [address] [facility] [place], [address] 12 Lead EKGon 11-14-2023 12 Lead EKG [facility] Cardiovascular Services [address] [place] [place] [address] 12 Lead EKG 11/14/23 1310 MR#: [id number] Acct: [id number] Name: RAE ELLIOTT Rep #: [id number] : 1950 73 From: Yadira Antonio MD Attending Dr: Status: DEP ER Ordering Dr: Umang Ruiz FURNACE MAINTENANCEIgnacio Date: 11/14/23 Location: ED Sex: M C Admitted: Test Reason : SYNCOPE Blood Pressure : / mmHG Vent. Rate : 061 BPM Atrial Rate : 061 BPM P-R Int : 094 ms QRS Dur : 082 ms QT Int : 456 ms P-R-T Axes : 000 024 030 degrees QTc Int : 459 ms Sinus rhythm with sinus arrhythmia with short [place] Otherwise normal ECG Confirmed by KY RICK, LESLEY ([id number]), editor at large FLORENTIN SHEPHERD ([id number]) on 11/17/2023 2:14:57 PM Referred By: Confirmed By:SEPIDEH ANTONIO MD 11/17/23 1414 Date Yadira Antonio MD CC: FURNACE MAINTENANCE-C Umang Ruiz; Dr. Camilo Quiles DO; Dr. Aguilar Greenfield DO Signed Normal [facility] Basic Metabolic Profile (BMP )on 11-14-2023 BUN/CRE 22.1 RATIO High 10-20 [facility] Comment on above: Order Comment: 'TROP ' Serial specimen #1, #2 or #3: 1 Performed By: #### L 501.6710, L501.9940, L3410.2400 #### [facility] [address] [place], [address] CA,Total 9.2 mg/dL Normal 8.5-10.1 [facility] Comment on above: Order Comment: 'TROP ' Serial specimen #1, #2 or #3: 1 Performed By: #### L 501.6710, L501.9940, L3410.2400 #### [facility] [address] [place], [address] Chloride [Moles/Vol] 110 mmol/L High 98-107 [facility] Comment on above: Order Comment: 'TROP ' Serial specimen #1, #2 or #3: 1 Performed By: #### L 501.6710, L501.9940, L3410.2400 #### [facility] [address] [place], [address] CO2 [Moles/Vol] 27.0 mmol/L Normal 21.0-32.0 [facility] Comment on above: Order Comment: 'TROP ' Serial specimen #1, #2 or #3: 1 Performed By: #### L 501.6710, L501.9940, L3410.2400 #### [facility] [address] [place], [address] Creatinine [Mass/Vol] 1.13 mg/dL Normal 0.70-1.30 [facility] Comment on above: Order Comment: 'TROP ' Serial specimen #1, #2 or #3: 1 Result Comment: The validity of the calculated GFR GFRAA in patients over 70 years has not been determined. Clinical correlation is essential. Performed By: #### L 501.6710, L501.9940, L3410.2400 #### [facility] [address] [place], [address] ECRCL 61.91 ml/min Normal [facility] Comment on above: Order Comment: 'TROP ' Serial specimen #1, #2 or #3: 1 Performed By: #### L 501.6710, L501.9940, L3410.2400 #### [facility] [address] [place], [address] EST GFR - AA 82 mL/min Normal >60 [facility] Comment on above: Order Comment: 'TROP ' Serial specimen #1, #2 or #3: 1 Result Comment: Afri can Croatian GFR Calc Performed By: #### L 501.6710, L501.9940, L3410.2400 #### [facility] [address] [place], [address] GAP 3 Low 5-15 [facility] Comment on above: Order Comment: 'TROP ' Serial specimen #1, #2 or #3: 1 Performed By: #### L 501.6710, L501.9940, L3410.2400 #### [facility] [address] [place], [address] GFR/1.73 sq M.predicted among non-blacks MDRD (S/P/Bld) [Vol rate/Area] 68 mL/min/{1.73_m2} Normal >60 [facility] Comment on above: Order Comment: 'TROP ' Serial specimen #1, #2 or #3: 1 Result Comment: Non- GFR Calc Performed By: #### L 501.6710, L501.9940, L3410.2400 #### [facility] [address] [place], [address] Glucose [Mass/Vol] 126 mg/dL High 74-[address] [facility] Comment on above: Order Comment: 'TROP ' Serial specimen #1, #2 or #3: 1 Result Comment: Fast ing Glucose result greater than or equal to 126 mg/dL suggests DIABETES MELLITUS per A.D.A. criteria. Performed By: #### L 501.6710, L501.9940, L3410.2400 #### [facility] [address] [place], [address] Potassium [Moles/Vol] 4.0 mmol/L Normal 3.5-5.1 [facility] Comment on above: Order Comment: 'TROP ' Serial specimen #1, #2 or #3: 1 Performed By: #### L 501.6710, L501.9940, L3410.2400 #### [facility] [address] [place], [address] Sodium [Moles/Vol] 140 mmol/L Normal 136-[address] [facility] Comment on above: Order Comment: 'TROP ' Serial specimen #1, #2 or #3: 1 Performed By: #### L 501.6710, L501.9940, L3410.2400 #### [facility] [address] [place], [address] Urea nitrogen [Mass/Vol] 25 mg/dL High 7-18 [facility] Comment on above: Order Comment: 'TROP ' Serial specimen #1, #2 or #3: 1 Performed By: #### L 501.6710, L501.9940, L3410.2400 #### [facility] [address] [place], [address] CBC W/Diff, Automatedon 07-2 Absolute Lymph 1.05 X10 3/uL Normal 0.83-4.51 [facility] Comment on above: Performed By: #### L 501.6710, L501.9940, L3410.2400 #### [facility] [address] [place], [address] Absolute Neut 2.7 X10 3/uL Normal 2.0-7.7 [facility] Comment on above: Performed By: #### L 501.6710, L501.9940, L3410.2400 #### [facility] [address] [place], [address] Basophils/100 WBC (Bld) 0.5 % Normal 0-1 [facility] Comment on above: Performed By: #### L 501.6710, L501.9940, L3410.2400 #### [facility] [address] [place], [address] Eosinophils/100 WBC (Bld) 1.8 % Normal 0-5 [facility] Comment on above: Performed By: #### L 501.6710, L501.9940, L3410.2400 #### [facility] [address] [place], [address] Erythrocyte distribution width (RBC) [Ratio] 12.8 % Normal 11.6-14.6 [facility] Comment on above: Performed By: #### L 501.6710, L501.9940, L3410.2400 #### [facility] [address] [place], [address] Hematocrit (Bld) [Volume fraction] 36.9 % Low 40-54 [facility] Comment on above: Performed By: #### L 501.6710, L501.9940, L3410.2400 #### [facility] [address] [place], [address] Hemoglobin (Bld) [Mass/Vol] 12.0 g/dL Low 13.0-16.5 [facility] Comment on above: Performed By: #### L 501.6710, L501.9940, L3410.2400 #### [facility] [address] [place], [address] IG% 0.700 Normal 0.0-0.9 [facility] Comment on above: Result Comment: IG% - Immature Granulocytes (promyelocytes, myelocytes and metamyelocytes) > 1% indicates that a LEFT SHIFT is Present. Performed By: #### L 501.6710, L501.9940, L3410.2400 #### [facility] [address] [place], [address] Lymphocytes/100 WBC (Bld) 24.0 % Normal 19-41 [facility] Comment on above: Performed By: #### L 501.6710, L501.9940, L3410.2400 #### [facility] [address] [place], [address] MCH (RBC) [Entitic mass] 28.8 pg Normal 27.0-32.0 [facility] Comment on above: Performed By: #### L 501.6710, L501.9940, L3410.2400 #### [facility] [address] [place], [address] MCHC (RBC) [Mass/Vol] 32.5 g/dL Normal 32-36 [facility] Comment on above: Performed By: #### L 501.6710, L501.9940, L3410.2400 #### [facility] [address] [place], [address] MCV (RBC) [Entitic vol] 88.7 fL Normal 80-94 [facility] Comment on above: Performed By: #### L 501.6710, L501.9940, L3410.2400 #### [facility] [address] [place], [address] Monocytes/100 WBC (Bld) 11.0 % High 0-10 [facility] Comment on above: Performed By: #### L 501.6710, L501.9940, L3410.2400 #### [facility] [address] [place], [address] Neutrophils/100 WBC (Bld) 62.0 % Normal 47-70 [facility] Comment on above: Performed By: #### L 501.6710, L501.9940, L3410.2400 #### [facility] [address] [place], [address] Nucleated RBC (Bld) [#/Vol] 0 10*3/uL Normal 0-5 [facility] Comment on above: Performed By: #### L 501.6710, L501.9940, L3410.2400 #### [facility] [address] [place], [address] Platelet mean volume (Bld) [Entitic vol] 9.2 fL Normal 6.2-12.0 [facility] Comment on above: Performed By: #### L 501.6710, L501.9940, L3410.2400 #### [facility] [address] [place], [address] Platelets (Bld) [#/Vol] 187 10*3/uL Normal 150-450 [facility] Comment on above: Performed By: #### L 501.6710, L501.9940, L3410.2400 #### [facility] [address] [place], [address] RBC (Bld) [#/Vol] 4.16 10*6/uL Low 4.6-6.2 [facility] Comment on above: Performed By: #### L 501.6710, L501.9940, L3410.2400 #### [facility] [address] [place], [address] RDW SD 41.8 fl Normal 35.1-43.9 [facility] Comment on above: Performed By: #### L 501.6710, L501.9940, L3410.2400 #### [facility] [address] [place], [address] WBC (Bld) [#/Vol] 4.4 10*3/uL Normal 4.4-11.[address] [facility] Comment on above: Performed By: #### L 501.6710, L501.9940, L3410.2400 #### [facility] [address] [place], [address] Chest PA and Lateralon 11-13 Chest PA and Lateral [facility] Imaging Services [address] [place] [address] Chest PA and Lateral MR#: [id number] Acct: [id number] Name: RAE ELLIOTT Rep #: [id number] : 1950 M 73 From: Tanya chanel MD PCP: Dr. Aguilar Greenfield DO Status: REG ER Study: Chest PA and Lateral Date of Exam: 11/14/23 Exam# [id number] Ordering Dr: Umang Ruiz FURNACE MAINTENANCE-Segundo [id number] HISTORY: cough. TECHNIQUE: XR Chest 2 Views. COMPARISON: None. FINDINGS: CARDIOMEDIASTINAL BORDERS: Cardiac silhouette within normal limits in size. Mediastinal contour unremarkable. LUNGS: Mild linear bibasilar opacities. PLEURA: No pleural effusion or pneumothorax seen. OSSEOUS STRUCTURES: Degenerative change. RAD/Chest PA and Lateral IMPRESSION: Mild bibasilar atelectasis or inflammation. Electronically Signed: Tanya Shaver MD at 14:04 EDT , CC: MADELINE Ruiz; Dr. Aguilar Greenfield DO Closet Organizer: Signed Normal [facility] Emergency Department Summary on 11-14-2023 Emergency Department Summary [facility] Medical Records Department [address] [place] [address] Emergency Department Summary 11/14/23 MR#: [id number] Acct: [id number] Name: RAE ELLIOTT Rep #: [id number] : 1950 73 From: Umang CORREA PCP: Dr. Aguilar Greenfield, DO Status:DEP ER Location: ED HPI History of Present Illness Chief Complaint: Syncope Narrative Narrative: Patient is a 73-year-old male with history of prostate cancer who is currently being treated by [facility] and also goes to [place] and receives treatment there. Patient states he currently has an implant in from the [facility]. Patient states today, he was able to get up, he felt well, he biked to a flea market, he did not eat breakfast which is what he normally does, then when he sat down to eat lunch, he felt dizzy, developed diaphoresis, and thought he was going to pass out. Secondary to him not feeling well, the patrons at the restaurant called the ambulance. Patient states he feels slightly better now. He does feel slightly weak. Denies any chest pain, shortness of breath. [facility] Medical History (Updated 11/14/23 @ 14:58 by MADELINE Bolanos) Prostate cancer Home Medications ???Medication ???Instructions ???Recorded ???Last Taken ???Type NK 11/14/23 Unknown History Allergy/AdvReac Type Severity Reaction Status Date / Time No Known Allergies Allergy Verified 11/14/23 12:54 Social History Smoking Status: Never smoker ROS ROS ED ROS Narrative Constitutional: Negative for fever, chills, weight loss, weakness Eyes: Negative for vision loss, vision change, double vision ENT: Negative for any sore throat, ear pain, congestion Cardiovascular: Negative for any chest pain, tightness, palpitations Respiratory: Negative for any cough, sputum production, hemoptysis, dyspnea, dyspnea on exertion, orthopnea Gastrointestinal: Negative for any abdominal pain, nausea, vomiting, diarrhea, constipation, blood in stool, blood in vomit : Negative for any urinary frequency, dysuria, retention, blood in urine Muscle skeletal: Negative for any neck pain, back pain Neurological: Negative for any headache, syncope. Positive for dizziness, near syncope Skin: Negative for any rashes, itching, abrasions, lacerations Psychiatric: Negative for any depression, anxiety, stress, suicidal ideation, homicidal ideation Hematologic: Negative for any excessive bruising, easy bleeding EXAM Physical Exam Narrative Exam Narrative: Vital signs reviewed. Vital signs are stable, patient is in no obvious distress. Patient dates he feels generally normal. HEET: Head normocephalic atraumatic, TMs clear bilaterally. Posterior pharynx is clear, moist mucous membranes. Nares clear bilaterally. Neck: Supple with no lymphadenopathy or tenderness. No signs of meningismus. Cardiac: Regular rate and rhythm no murmurs gallops or rubs, equal peripheral pulses bilaterally. Respiratory: Lungs clear to auscultation bilaterally. No chest tenderness. Abdomen: Soft, nontender, nondistended. No abdominal bruit or pulsatile masses. No hepatosplenomegaly Extremities: No peripheral edema, no signs of gross trauma or deformity. Active full range of motion of all extremities. Neuro: Cranial nerves II through XII intact, no focal neurological deficits. Skin: Clean dry and intact with no rash, purpura, petechiae, vesicles or pustules. Backs/flank: No CVA tenderness, no midline spinal tenderness, no deformity. Psych: Normal mood and affect. No SI, HI or acute psychosis. Const Vital Signs: 11/14/23 12:54 11/14/23 12:58 11/14/23 13:53 Temperature 96.1 F L Temperature Source Oral Pulse Rate 62 57 L Respiratory Rate 10 L 14 Respiratory Effort Normal Respiratory Pattern Normal Blood Pressure 132/92 H 124/77 H Blood Pressure Mean 105 92 Pulse Ox 95 97 Oxygen Delivery Method Room Air 11/14/23 14:00 11/14/23 14:50 Temperature 97.7 F L Temperature Source Pulse Rate 57 L 62 Respiratory Rate 16 14 Respiratory Effort Respiratory Pattern Blood Pressure 124/77 H 124/77 H Blood Pressure Mean 92 92 Pulse Ox 98 98 Oxygen Delivery Method Room Air Physical Exam Const Vital Signs: 11/14/23 12:54 11/14/23 12:58 11/14/23 13:53 Temperature 96.1 F L Temperature Source Oral Pulse Rate 62 57 L Respiratory Rate 10 L 14 Respiratory Effort Normal Respiratory Pattern Normal Blood Pressure 132/92 H 124/77 H Blood Pressure Mean 105 92 Pulse Ox 95 97 Oxygen Delivery Method Room Air 11/14/23 14:00 11/14/23 14:50 Temperature 97.7 F L Temperature Source Pulse Rate 57 L 62 Respiratory Rate 16 14 Respiratory Effort Respiratory Pattern Blood Pressure 124/77 H 124/77 H Blood Pressure Mean 92 (more content not included)... Normal [facility] L501.4020on 11-14-2023 TROPONIN-I HS 7 pg/mL Normal 3.0-78.0 [facility] Comment on above: Order Comment: 'TROP ' Serial specimen #1, #2 or #3: 1 Result Comment: Roque hernandez Note: New Test Units and Gender Specific Reference Ranges. For more information see Policy Stat Procedure [place] High Sensitivity Troponin (TNIH) and attachments. Performed By: #### L 501.6710, L501.9940, L3410.2400 #### [facility] [address] [place], [address] Urinalysis, Completeon 11-13 WBC 0-5 SEEN Normal 0-5 [facility] Comment on above: Order Comment: CLEAN CATCH Performed By: #### L 400.0001 #### [facility] [address] [place], [address] BACTERIA 0 SEEN Normal None Seen [facility] Comment on above: Order Comment: CLEAN CATCH Performed By: #### L 400.0001 #### [facility] [address] [place], [address] EPI,SQUAMOUS 0 SEEN Normal 0-5 [facility] Comment on above: Order Comment: CLEAN CATCH Performed By: #### L 400.0001 #### [facility] [address] [place], [address] Mucus Ql (Urine sed) 0 SEEN Normal [facility] Comment on above: Order Comment: CLEAN CATCH Performed By: #### L 400.0001 #### [facility] [address] [place], [address] RBC 0 SEEN Normal 0-5 [facility] Comment on above: Order Comment: CLEAN CATCH Performed By: #### L 400.0001 #### [facility] [address] [place], [address] Calprotectin, Stoolon [address] <5 Normal 0-120 [facility] Comment on above: Order Comment: Test( s) 706511-Ufqs, Neutral; 138584-Eaaz, Total was developed and its performance characteristics determined by [facility]. It has not been cleared or approved by the Food and Drug Administration. Result Comment: Conc entration Interpretation Follow-Up < 5 - 50 ug/g Normal None >50 -120 ug/g Borderline Re-evaluate in 4-6 weeks >120 ug/g Abnormal Repeat as clinically indicated Performed at: [facility] [address] [id number] Activity Leader: Rome Dunbar PhD, Phone: [phone] Performed at: [facility] [address] [id number] Activity Leader: Jim Lewis MD, Phone: [phone] Performed By: #### L 7000.0300, L7000.0700 #### [facility] [address] [place], [place], [id number] Fecal Fat, Qualitativeon FATS, NEUTRAL Normal Normal . [facility] Comment on above: Order Comment: Test( s) 138084-Cffj, Neutral; 098950-Fyvj, Total was developed and its performance characteristics determined by [facility]. It has not been cleared or approved by the Food and Drug Administration. Result Comment: Norm al (<60 Droplets/HPF) Performed By: #### L 7000.0300, L7000.0700 #### [facility] [address] [place], [place], [address] FATS, TOTAL Increased Normal . [facility] Comment on above: Order Comment: Test( s) 538089-Msph, Neutral; 581137-Xcfa, Total was developed and its performance characteristics determined by [facility]. It has not been cleared or approved by the Food and Drug Administration. Result Comment: Norm al (<100 Droplets/HPF) Performed By: #### L 7000.0300, L7000.0700 #### [facility] [address] [place], [address] Celiac Disease Profileon ENDOMYSIAL IGA Negative Normal Negative [facility] Comment on above: Performed By: #### L 501.6710, L501.9940, L3410.2400 #### [facility] [address] [place], [place], [id number] IMMUNOGLOB A QN 116 mg/dL Normal 61-437 [facility] Comment on above: Result Comment: Perf ormed at: [facility] [address] [id number] Activity Leader: Rome Dunbar PhD, Phone: [phone] Performed By: #### L 501.6710, L501.9940, L3410.2400 #### [facility] [address] [place], [address] tTG IGA <2 Normal 0-3 [facility] Comment on above: Result Comment: Nega tive 0 - 3 Weak Positive 4 - 10 Positive >10 Tissue Transglutaminase (tTG) has been identified as the endomysial antigen. Studies have demonstr- ated that endomysial IgA antibodies have over 99% specificity for gluten sensitive enteropathy. Performed By: #### L 501.6710, L501.9940, L3410.2400 #### [facility] [address] [place], [place], [address] CRPon 09-30-2023 C-REACTIVE PROT < 2.90 Normal 0.0-3.0 [facility] Comment on above: Result Comment: C-Re active Protein (CRP) provides useful information for the diagnosis, therapy and monitoring of inflammatory processes and associated diseases. For the evaluation of Relative Risk for Cardiovascular Disease, a High Sensitivity CRP (HSCRP) should be ordered. Performed By: #### L 501.6710, L501.9940, L3410.2400 #### [facility] [address] [place], [place], [id number] PSA,Total- Diagnosticon 09-18 PSA, DIAGNOSTIC 78.70 ng/mL High 0.0-4.0 [facility] Comment on above: Result Comment: This test was performed using the TPSA assay method for the [employer]ension chemistry system. Values obtained with different assay methods cannot be used interchangably. When changing PSA assays in the course of monitoring a patient, additional sequential testing should be carried out to confirm baseline values. Performed By: #### L 501.6710, L501.9940, L3410.2400 #### [facility] [address] [place], [address] Basic Metabolic Profile (BMP )on 08-15-2023 BUN/CRE 27.6 RATIO High 10-20 [facility] Comment on above: Performed By: #### L 501.6710, L501.9940, L3410.2400 #### [facility] [address] [place], [address] CA,Total 9.1 mg/dL Normal 8.5-10.1 [facility] Comment on above: Performed By: #### L 501.6710, L501.9940, L3410.2400 #### [facility] [address] [place], [address] Chloride [Moles/Vol] 107 mmol/L Normal 98-107 [facility] Comment on above: Performed By: #### L 501.6710, L501.9940, L3410.2400 #### [facility] [address] [place], [address] CO2 [Moles/Vol] 27.0 mmol/L Normal 21.0-32.0 [facility] Comment on above: Performed By: #### L 501.6710, L501.9940, L3410.2400 #### [facility] [address] [place], [address] Creatinine [Mass/Vol] 0.98 mg/dL Normal 0.70-1.30 [facility] Comment on above: Result Comment: The validity of the calculated GFR GFRAA in patients over 70 years has not been determined. Clinical correlation is essential. Performed By: #### L 501.6710, L501.9940, L3410.2400 #### [facility] [address] [place], [address] EST GFR - AA 97 mL/min Normal >60 [facility] Comment on above: Result Comment: Afri can Croatian GFR Calc Performed By: #### L 501.6710, L501.9940, L3410.2400 #### [facility] [address] [place], [address] GAP 4 Low 5-15 [facility] Comment on above: Performed By: #### L 501.6710, L501.9940, L3410.2400 #### [facility] [address] [place], [address] GFR/1.73 sq M.predicted among non-blacks MDRD (S/P/Bld) [Vol rate/Area] 80 mL/min/{1.73_m2} Normal >60 [facility] Comment on above: Result Comment: Non- GFR Calc Performed By: #### L 501.6710, L501.9940, L3410.2400 #### [facility] [address] [place], [address] Glucose [Mass/Vol] 101 mg/dL Normal 74-[address] [facility] Comment on above: Result Comment: Fast ing Glucose result from 100 to 125 mg/dL suggests IMPAIRED HOMEOSTASIS per A.D.A. criteria. Performed By: #### L 501.6710, L501.9940, L3410.2400 #### [facility] [address] [place], [address] Potassium [Moles/Vol] 4.0 mmol/L Normal 3.5-5.1 [facility] Comment on above: Performed By: #### L 501.6710, L501.9940, L3410.2400 #### [facility] [address] [place], [address] Sodium [Moles/Vol] 138 mmol/L Normal 136-[address] [facility] Comment on above: Performed By: #### L 501.6710, L501.9940, L3410.2400 #### [facility] [address] [place], [address] Urea nitrogen [Mass/Vol] 27 mg/dL High 7-18 [facility] Comment on above: Performed By: #### L 501.6710, L501.9940, L3410.2400 #### [facility] [address] [place], [address] Basophil percentageOrdered B y: Rosales Amezquita on 08-15-2023 Basophil percentage 94.80 ng/mL 0.0-4.0 [facility] Comment on above: This test was perfor med using the TPSA assay method for thePipelineDB chemistry system. Values obtained with differentassay methods cannot be used interchangably.When changing PSA assays in the course of monitoring apatient, additional sequential testing should be carriedout to confirm baseline values. Chloride [Moles/Vol] 107 mmol/L 98-107 [facility] Glucose [Mass/Vol] 101 mg/dL 74-[address] [facility] Comment on above: Fasting Glucose resu lt from 100 to 125 mg/dL suggests IMPAIRED HOMEOSTASIS per A.D.A. criteria. Hemoglobin (Bld) [Mass/Vol] 12.6 g/dL 13.0-16.5 [facility] Potassium [Moles/Vol] 4.0 mmol/L 3.5-5.1 [facility] Sodium [Moles/Vol] 138 mmol/L 136-[address] [facility] WBC (Bld) [#/Vol] 5.5 10*3/uL 4.4-11.[address] [facility] CBC-Complete Blood Cnt No Di ffon 08-15-2023 Erythrocyte distribution width (RBC) [Ratio] 13.2 % Normal 11.6-14.6 [facility] Comment on above: Performed By: #### L 501.6710, L501.9940, L3410.2400 #### [facility] [address] [place], [address] Hematocrit (Bld) [Volume fraction] 39.2 % Low 40-54 [facility] Comment on above: Performed By: #### L 501.6710, L501.9940, L3410.2400 #### [facility] [address] [place], [address] Hemoglobin (Bld) [Mass/Vol] 12.6 g/dL Low 13.0-16.5 [facility] Comment on above: Performed By: #### L 501.6710, L501.9940, L3410.2400 #### [facility] [address] [place], [address] MCH (RBC) [Entitic mass] 28.0 pg Normal 27.0-32.0 [facility] Comment on above: Performed By: #### L 501.6710, L501.9940, L3410.2400 #### [facility] [address] [place], [address] MCHC (RBC) [Mass/Vol] 32.1 g/dL Normal 32-36 [facility] Comment on above: Performed By: #### L 501.6710, L501.9940, L3410.2400 #### [facility] [address] [place], [address] MCV (RBC) [Entitic vol] 87.1 fL Normal 80-94 [facility] Comment on above: Performed By: #### L 501.6710, L501.9940, L3410.2400 #### [facility] [address] [place], [address] Platelet mean volume (Bld) [Entitic vol] 9.8 fL Normal 6.2-12.0 [facility] Comment on above: Performed By: #### L 501.6710, L501.9940, L3410.2400 #### [facility] [address] [place], [address] Platelets (Bld) [#/Vol] 239 10*3/uL Normal 150-450 [facility] Comment on above: Performed By: #### L 501.6710, L501.9940, L3410.2400 #### [facility] [address] [place], [address] RBC (Bld) [#/Vol] 4.50 10*6/uL Low 4.6-6.2 [facility] Comment on above: Performed By: #### L 501.6710, L501.9940, L3410.2400 #### [facility] [address] [place], [address] RDW SD 41.9 fl Normal 35.1-43.9 [facility] Comment on above: Performed By: #### L 501.6710, L501.9940, L3410.2400 #### [facility] [address] [place], [address] WBC (Bld) [#/Vol] 5.5 10*3/uL Normal 4.4-11.[address] [facility] Comment on above: Performed By: #### L 501.6710, L501.9940, L3410.2400 #### [facility] [address] [place], [address] Determination of erythrocyte mean corpuscular volume (MCV)Ordered By: Rosales Amezquita on 08-15-2023 MCV (RBC) [Entitic vol] 87.1 fL 80-94 [facility] Erythrocyte distribution wid th ratioOrdered By: Rosales Amezquita on 08-15-2023 Erythrocyte distribution width (RBC) [Ratio] 13.2 % 11.6-14.6 [facility] Erythrocyte distribution wid th standard deviationOrdered By: Rosales Amezquita on 08-15-2023 Erythrocyte distribution width (RBC) [Entitic vol] 41.9 fL 35.1-43.9 [facility] Hematocrit Auto (Bld) [Volum e fraction]Ordered By: Rosales Amezquita on 08-15-2023 Hematocrit (Bld) [Volume fraction] 39.2 % 40-54 [facility] - Chemistry and C hemistry - challengeOrdered By: Rosales Amezquita on 08-15-2023 CO2 [Moles/Vol] 27.0 mmol/L 21.0-32.0 [facility] Urea nitrogen/Creatinine [Mass ratio] 27.6 mg/mg 10-20 [facility] - Hematology and Cell countsOrdered By: Rosales Amezquita on 08-15-2023 MCH (RBC) [Entitic mass] 28.0 pg 27.0-32.0 [facility] MCHC (RBC) [Mass/Vol] 32.1 g/dL 32-36 [facility] Platelet mean volume (Bld) [Entitic vol] 9.8 fL 6.2-12.0 [facility] Platelets (Bld) [#/Vol] 239 10*3/uL 150-450 [facility] No Panel InformationOrdered By: Rosales Amezquita on 08-15-2023 Estimated GFR (MDRD) Amer 97 mL/min >60 [facility] Comment on above: GFR Calc Estimated GFR (MDRD) Non-Af Amer 80 mL/min >60 [facility] Comment on above: Non- GFR Calc PSA,Total- Diagnosticon 07-20 PSA, DIAGNOSTIC 94.80 ng/mL High 0.0-4.0 [facility] Comment on above: Result Comment: This test was performed using the TPSA assay method for the [employer] chemistry system. Values obtained with different assay methods cannot be used interchangably. When changing PSA assays in the course of monitoring a patient, additional sequential testing should be carried out to confirm baseline values. Performed By: #### L 501.6710, L501.9940, L3410.2400 #### [facility] [address] [place], [address] RBC Auto (Bld) [#/Vol]Ordere d By: Rosales Amezquita on 08-15-2023 RBC (Bld) [#/Vol] 4.50 10*6/uL 4.6-6.2 [facility] Serum or plasma calcium jose urement (mass/volume)Ordered By: Rosales Amezquita on 08-15-2023 Calcium [Mass/Vol] 9.1 mg/dL 8.5-10.[address] [facility] Serum or plasma creatinine m easurement (mass/volume)Ordered By: Rosales Amezquita on 08-15-2023 Creatinine [Mass/Vol] 0.98 mg/dL 0.70-1.30 [facility] Comment on above: The validity of the calculated GFR & GFRAA in patients over 70 years has not been determined. Clinical correlation is essential. Serum or plasma urea nitroge n measurement (mass/volume)Ordered By: Rosales Amezquita on 08-15-2023 Urea nitrogen [Mass/Vol] 27 mg/dL 7-18 [facility] Thin prep Papanicolaou smear with manual screeningOrdered By: Rosales Amezquita on 08-15-2023 Thin prep Papanicolaou smear with manual screening 4 5-15 [facility] Final Surgical Pathology Rep [facility] 08-11-2023 Final Surgical Pathology Report . Pathology Reports Accession: Collected Date/Time: Received Date/Time: Pathologist: [id number] 08/07/2023 16:57 EDT 08/10/2023 07:51 EDT J CARLOS SHAVER MD Final Surgical Pathology Report DIAGNOSIS: A. RECTUM, BIOPSY: - MILD MELANOSIS COLI B. ASCENDING AND DESCENDING COLON, BIOPSY: - MILD MELANOSIS COLI CLINICAL INFORMATION: COLONOSCOPY WITH BIOPSIES Procedure: COLONOSCOPY Preoperative diagnosis: DIARRHEA/RECTAL DISCHARGE Postoperative diagnosis: DIARRHEA/COLITIS SPECIMEN: A RECTUM B ASCENDING AND DESCENDING COLON GROSS DESCRIPTION: All parts labelled with patient name and [id number] A. Received in formalin labeled rectum biopsies are 5 dodge tissue fragments measuring less than 0.1 to 0.2 cm. Smallest fragment may not survive processing. TS-1 B. Received in formalin labeled ascending and descending colon biopsies are multiple dodge tissue fragments aggregating 1.6 x 0.2 x 0.1 cm. TS-1 Swathi Garza, Grossing Electrical Manager/ Dr. J Carlos Shaver, Pathologist Dictated by Swathi Garza MICROSCOPIC DESCRIPTION: The microscopic examination is performed, except in the case of Gross Only. Electronically Signed by Pathology Report verified by [facility] J CARLOS SHAVER Sign out Date: 08/11/2023 11:07 Performing Lab: [facility], [facility] [address] [place] [id number] [place] [address] Pathology Dept Disclaimer If ancillary studies were utilized, the following Laboratory Developed Test (LDT) disclaimer will apply: Under CLIA requirements, [facility] is qualified to perform high complexity testing. For all ancillary stains, positive and negative controls stain appropriately. Performance characteristics of immunohistochemical and chromogenic in-situ hybridization tests have been determined by [facility]. These tests are used for clinical purposes, They should not be regarded as investigational or for research. Normal [facility] ([place]) Basophil percentageOrdered B y: Rosales Amezquita on 06-08-2023 Basophil percentage 512.00 ng/mL 0.0-4.0 [facility] Comment on above: This test was perfor med using the TPSA assay method for [employer] chemistry system. Values obtained with differentassay methods cannot be used interchangably.When changing PSA assays in the course of monitoring apatient, additional sequential testing should be carriedout to confirm baseline values. PSA, TOTALon 02-11-2023 PSA, TOTAL 517.20 ng/mL High < OR = 4.00 [facility] Comment on above: Order Comment: FASTI NG: NO Result Comment: Veri fied by repeat analysis. The total PSA value from this assay system is standardized against the WHO standard. The test result will be approximately 20% lower when compared to the equimolar-standardized total PSA ([place]). Comparison of serial PSA results should be interpreted with this fact in mind. This test was performed using the Siemens chemiluminescent method. Values obtained from different assay methods cannot be used interchangeably. PSA levels, regardless of value, should not be interpreted as absolute evidence of the presence or absence of disease. Performed By: #### 5 363 #### [facility] [address], [address] [place] [address] Instrument Repair Supervisor: Gerard Maldonado MD PSA, TOTALon 01-22-2023 PSA, TOTAL 416.99 ng/mL High < OR = 4.00 [facility] Comment on above: Order Comment: FASTI NG: NO Result Comment: The total PSA value from this assay system is standardized against the WHO standard. The test result will be approximately 20% lower when compared to the equimolar-standardized total PSA ([place]). Comparison of serial PSA results should be interpreted with this fact in mind. This test was performed using the Siemens chemiluminescent method. Values obtained from different assay methods cannot be used interchangeably. PSA levels, regardless of value, should not be interpreted as absolute evidence of the presence or absence of disease. Performed By: #### 5 363 #### [facility] [address] [facility], [address] [place] [address] Instrument Repair Supervisor: Gerard Maldonado MD XR HIP 2-3 VIEWS RIGHTon XR HIP 2-3 VIEWS RIGHT ORIGINAL EXAMINATION: 1 x-ray view of the pelvis and 2 XRAY VIEWS OF THE RIGHT HIP 09/27/2022 12:01 pm COMPARISON: None. HISTORY: ORDERING SYSTEM PROVIDED HISTORY: Reason for Exam: Pain Decreased ROM Hx. of Prostate CA FINDINGS: The pelvic ring is intact with no sign of fracture. Sacroiliac and pubic symphysis alignment is normal. There is moderate arthritic narrowing of both hips with degenerative acetabular spur formation. No fracture or dislocation of the right hip is present. No sclerotic or lytic lesions suspicious for metastasis are detected. IMPRESSION: Moderate osteoarthritis of both hips. No fracture. No aggressive osseous lesion detected. Interpreted by: Gurpreet Villanueva MD Preliminary Report By: Gurpreet Villanueva MD Electronically signed By Gurpreet Villanueva MD Dictated Date: 09/29/2022 2:22:23 AM Prelim Date: 09/29/2022 2:24:11 AM Sign Date: 09/29/2022 2:24:11 AM Ordering Provider: AGUILAR GREENFIELD [facility] ([place]) XR SHOULDER MINIMUM 2 VIEWS LEFTon 09-29-2022 XR SHOULDER MINIMUM 2 VIEWS LEFT ORIGINAL EXAMINATION: 3 XRAY VIEWS OF THE LEFT SHOULDER 09/27/2022 12:00 pm COMPARISON: None. HISTORY: ORDERING SYSTEM PROVIDED HISTORY: Reason for Exam: Pain Decreased ROM Hx. of Prostate CA FINDINGS: The left glenohumeral joint alignment is normal. Left humeral head and neck are intact. There is degenerative spurring and accessory ossicles at the left acromioclavicular joint consistent with degenerative arthritis. There is no dislocation. Calcification near the greater tuberosity is consistent with calcific tendinitis. The left clavicle and left scapula show no sign of fracture. Adjacent left ribs are intact. IMPRESSION: Moderate acromioclavicular arthritis. Calcific tendinitis in rotator cuff. No fracture or dislocation. Interpreted by: Gurpreet Villanueva MD Preliminary Report By: Gurpreet Villanueva MD Electronically signed By Gurpreet Villanueva MD Dictated Date: 09/29/2022 2:19:35 AM Prelim Date: 09/29/2022 2:22:15 AM Sign Date: 09/29/2022 2:22:15 AM Ordering Provider: AGUILAR Hylton [facility] ([place]) PSA, TOTALon 09-03-2022 PSA, TOTAL 236.16 ng/mL High < OR = 4.00 [facility] Comment on above: Order Comment: FASTI NG: UNKNOWN Result Comment: The total PSA value from this assay system is standardized against the WHO standard. The test result will be approximately 20% lower when compared to the equimolar-standardized total PSA ([place]). Comparison of serial PSA results should be interpreted with this fact in mind. This test was performed using the Siemens chemiluminescent method. Values obtained from different assay methods cannot be used interchangeably. PSA levels, regardless of value, should not be interpreted as absolute evidence of the presence or absence of disease. Performed By: #### 5 363 #### [facility] [address], [address] [place] [address] Instrument Repair Supervisor: Gerard Maldonado MD PSA, TOTALon 05-08-2022 PSA, TOTAL 177.76 ng/mL High < OR = 4.00 [facility] Comment on above: Order Comment: FASTI NG: NO Result Comment: The total PSA value from this assay system is standardized against the WHO standard. The test result will be approximately 20% lower when compared to the equimolar-standardized total PSA ([place]). Comparison of serial PSA results should be interpreted with this fact in mind. This test was performed using the Siemens chemiluminescent method. Values obtained from different assay methods cannot be used interchangeably. PSA levels, regardless of value, should not be interpreted as absolute evidence of the presence or absence of disease. Performed By: #### 5 363 #### [facility] [address], [address] [place] [address] Instrument Repair Supervisor: Gerard Maldonado MD Basophil percentageon 2021 Chloride [Moles/Vol] 104 mmol/L 98-107 [facility] Work Phone: Glucose [Mass/Vol] 95 mg/dL 74-[address] [facility] Work Phone: Potassium [Moles/Vol] 4.3 mmol/L 3.5-5.1 [facility] Work Phone: Sodium [Moles/Vol] 138 mmol/L 136-[address] [facility] Work Phone: WBC (Bld) [#/Vol] 4.6 10*3/uL 4.4-11.[address] [facility] Work Phone: Blood erythrocytes count (nu mber/volume)on 12-16-2021 RBC (Bld) [#/Vol] 4.54 10*6/uL 4.6-6.2 [facility] Work Phone: Blood hemoglobin measurement (mass/volume)on 12-16-2021 Hemoglobin (Bld) [Mass/Vol] 13.2 g/dL 13.0-16.5 [facility] Work Phone: Blood platelet mean volumeon 12-16-2021 Platelet mean volume (Bld) [Entitic vol] 9.6 fL 6.2-12.0 [facility] Work Phone: Determination of erythrocyte mean corpuscular volume (MCV)on 12-16-2021 MCV (RBC) [Entitic vol] 90.3 fL 80-94 [facility] Work Phone: Hematocrit Auto (Bld) [Volum e fraction]on 12-16-2021 Hematocrit (Bld) [Volume fraction] 41.0 % 40-54 [facility] Work Phone: Laboratory - Chemistry and C hemistry - challengeon 12-16-2021 CO2 [Moles/Vol] 29.0 mmol/L 21.0-32.0 [facility] Work Phone: Urea nitrogen/Creatinine [Mass ratio] 21.0 mg/mg 10-20 [facility] Work Phone: Laboratory - Hematology and Cell countson 12-16-2021 Erythrocyte distribution width (RBC) [Entitic vol] 41.8 fL 35.1-43.9 [facility] Work Phone: Erythrocyte distribution width (RBC) [Ratio] 12.7 % 11.6-14.6 [facility] Work Phone: MCH (RBC) [Entitic mass] 29.1 pg 27.0-32.0 [facility] Work Phone: MCHC Auto (RBC) [Mass/Vol]on 12-16-2021 MCHC (RBC) [Mass/Vol] 32.2 g/dL 32-36 [facility] Work Phone: No Panel Informationon 12-16 Estimated GFR (MDRD) Amer 114 mL/min >60 [facility] Work Phone: Comment on above: GFR Calc Estimated GFR (MDRD) Non-Af Amer 94 mL/min >60 [facility] Work Phone: Comment on above: Non- GFR Calc Platelets bldon 12-16-2021 Platelets (Bld) [#/Vol] 234 10*3/uL 150-450 [facility] Work Phone: Serum or plasma calcium jose urement (mass/volume)on 12-16-2021 Calcium [Mass/Vol] 8.6 mg/dL 8.5-10.[address] [facility] Work Phone: Serum or plasma creatinine m easurement (mass/volume)on 12-16-2021 Creatinine [Mass/Vol] 0.86 mg/dL 0.70-1.30 [facility] Work Phone: Comment on above: The validity of the calculated GFR & GFRAA in patients over 70 years has not been determined. Clinical correlation is essential. Serum or plasma urea nitroge n measurement (mass/volume)on 12-16-2021 Urea nitrogen [Mass/Vol] 18 mg/dL 7-18 [facility] Work Phone: Thin prep Papanicolaou smear with manual screeningon 12-16-2021 Thin prep Papanicolaou smear with manual screening 5 5-15 [facility] Work Phone: Encounters Encounter Date Encounter Type Care Provider Facility Start: 07-28-2024 End: 07-28-[address] Aguilar Greenfield DO Work Phone: [facility] Work Phone: Start: 07-28-2024 End: 07-28-2024 Patient encounter procedure Marii Garza -Laboratory Work Phone: Start: 07-28-2024 End: 07-28-2024 ambulatory Marii Garza Facility:[facility] Start: 04-29-2024 End: 04-29-[address] Rosales Amezquita MD -Laboratory Work Phone: Start: 04-29-2024 End: 04-29-2024 ambulatory Rosales Amezquita Facility:[facility] Start: 11-14-2023 End: 11-14-2023 Emergency department patient visit Camilo Quiles Facility:[facility] Start: 10-02-2023 End: 10-02-2023 ambulatory Rome Alves Facility:[facility] Start: 09-30-2023 End: 09-30-2023 ambulatory Aguilar Greenfield Facility:[facility] Start: 08-15-2023 End: 08-15-2023 ambulatory [facility] Work Phone: Start: 08-15-2023 End: 08-15-2023 Patient encounter procedure [facility] Work Phone: Start: 08-15-2023 End: 08-15-2023 ambulatory Aguilar Greenfield Facility:[facility] Start: 08-07-2023 End: 08-12-[address] ROME ALVES MD Facility:[facility] Start: 08-07-2023 ambulatory Aguilar Greenfield Facility:[facility] Start: 06-16-2023 End: 06-16-2023 ambulatory [facility] Work Phone: Start: 06-16-2023 End: 06-16-2023 Patient encounter procedure [facility] [facility] Start: 06-08-2023 End: 06-08-2023 ambulatory [facility] Work Phone: Start: 06-08-2023 End: 06-08-2023 Patient encounter procedure [facility] Work Phone: Start: 09-27-2022 End: 09-28-2022 ambulatory LISY SENA Facility:[facility] Start: 12-16-2021 End: 12-16-2021 ambulatory [facility] Work Phone: Start: 12-16-2021 End: 12-16-2021 Patient encounter procedure [facility]Ne[facility]rology Procedures Date Procedure Procedure Detail Performing Clinician Start: 06-16-[address] of whole body Payers Date Payer Category Payer Self-pay [id number] 2022 Unknown [id number] 1950 Unknown [id number] 2.16.8 [id number] 1950 Unknown [id number] 2.16.8 [id number] Medicare MEDICARE PART A B [id number] Unknown [id number] 2.16.8 [id number] Unknown [id number] 2.16.8 [id number] Unknown [id number] 2.16.8 [id number] Unknown [id number] 2.16.8 [id number] Unknown [id number] 2.16.8 [id number] Unknown [id number] 2.16.8 [id number] Unknown [id number] Social History Date Type Detail Facility Tobacco smoking stat [facility] Unknown if ever smoked [facility] Work Phone: Start: 1950 Sex Assigned At Male [facility] Start: 11-14-2023 Tobacco smoking stat [facility] Never smoked tobacco (finding) [facility] Start: 08-02-2024 Sex Male (finding) [facility] Evaluation note Note Date & Type Note Facility Evaluation note No assessment information availa ble [facility] Work Phone: Reason for referral (narrative) Note Date & Type Note Facility Reason for referral (narrative) No reason for referral information available [facility] Work Phone: Chief Complaint and Reason for Visit Chief Complaint PRE -OP Chief Complaint PSA Chief Complaint PSA PYLARIFY Chief Complaint PSA PYLARIFY Elevated prostate specific antigen [PSA],BMP,CBC Summary Purpose Family History No Family History Records FoundNo Family History Records FoundNo Family History Records Found Advance Directives No Advanced Directives Records FoundNo Advanced Directives Records FoundNo Advanced Directives Records Found Additional Source Comments Goals (unrecognized section and content) Goals may be documented in a n alternate sectionGoals may be documented in an alternate sectionGoals may be documented in an alternate sectionGoals may be documented in an alternate sectionGoals may be documented in an alternate section (unrecognized sect ion and content) No Status Records FoundNo Status Records FoundNo Status Records Found INFORMATION SOURCE (unrecogn ized section and content) DATE CREATED AUTHOR 02/13/2023 [facility] DATE CREATED AUTHOR AUTHOR'S ORGANIZ ATION 08/14/2023 [facility] ([place] DATE CREATED AUTHOR AUTHOR'S ORGANIZ ATION 08/04/2024 [facility] Care Teams (unrecognized sec tion and content) Team Status: Active Member Role Status Dates Dr. Aguilar Greenfield DO Primary Care Provider Active Team Status: Inactive Member Role Status Dates Dr. Aguilar Greenfield DO Primary Care Provider Active Dr. Rosales Amezquita MD Attending Provider, Referr ing Provider Active Team Status: Inactive Member Role Status Dates Dr. Aguilar Greenfield DO Primary Care Provider Active Start: April 29, 2024 End: April 29, 2024 Dr. Rosales Amezquita MD Attending Provider Active Start: April 29, 2024 End: April 29, 2024 Dr. Rosales Amezquita MD Referring Provider Active Start: April 29, 2024 End: April 29, 2024 Team Status: Inactive Member Role Status Dates Dr. Aguilar Greenfield DO Primary Care Provider Active Start: July 28, 2024 End: July 28, 2024 Marii Alvarezing Attending Provider Active Start : July 28, 2024 End: July 28, 2024 Marii Alvarezing Referring Provider Active Start : July 28, 2024 End: July 28, 2024 FOR RECORDS PERTAINING TO PATIENTS WHO ARE [...] BE BASED ON THE PRIMARY CLINICAL RECORDS. [employer] provides no warranty or guarantee of the accuracy or completeness of information in this document.
[2024-11-05 11:07] LABS: PSA,Total- Diagnostic 109.00 ng/mL (0.00-4.00)
== END | disposition home or self-care (01) ==
PROVIDERS: PCP Family Medicine; Referring Provider Urology; Visit Provider Urology
DX: C61 Malignant neoplasm of prostate (principal)
CPT/HCPCS: 36415; 84153

== ENCOUNTER → 2024-11-10 | Outpatient (CLI) | payer MEDICARE, SELFPAY ==
--- OUTSIDE RECORDS SUMMARY | 2024-11-10 20:31 | XMS RPT_ITS | CCD ---
Author Organization [facility] ion Partnership [facility] Care Team Providers [employer] Name Role Phone LISY TALBOT Primary Care Unavailable AGUILAR GREENFIELD DO Attending Unavailable LONG RICK, DR CAUSEY Attending Unavailabl e LISY TALBOT Primary Care Unavailable Dr. Aguilar Greenfield DO Primary Care Provider Alirio RICK, Dr. Rosales Núñez Attending Provider Alirio RICK, Dr. Rosales Núñez Referring Provider 1( [phone] Lancaster, Marii Attending Provider Lancaster, Marii Referring Provider Aguilar Greenfield Primary Care Unavailable Lancaster, Marii Attending Unavailable Lancaster, Marii Referring Unavailable Camilo Quiles Attending Unavailable Aguilar Greenfield Primary Care Unavailable Rosales Amezquita Attending Unavailable Rosales Amezquita Referring Unavailable Aguilar Greenfield Primary Care Unavailable Rosales Amezquita Attending Unavailable Rosales Amezquita Referring Unavailable Aguilar Greenfield Primary Care Unavailable Problems Active Problems Problem Classification Problem Date Documented Da te Episodic/Chronic Cancer of prostate (2 sources) Malignant neoplasm of prostate; Translations: [Malignant neoplasm of prostate] Onset: 08-02-2024 Chronic Other gastrointestinal disorders (2 sources) Diarrhea, unspecified; Translations: [Diarrhea, unspecified] Onset: 08-07-2023 Episodic Past or Other Problems Problem Classification Problem Date Documented Da te Episodic/Chronic Other screening for suspected conditions (not mental disorders or infectious disease) (1 source) Elevated prostate specific antigen [PSA]; Translations: [Elevated prostate specific antigen [PSA]] Onset: 05-23-2024 Episodic Syncope (2 sources) Near syncope; Translations: [Syncope and collapse] Onset: 12-05-2023 11-22-2023 Episodic Results Test Name Value Interpretation Reference Range Facility PSA,Total- [facility] 10-18 PSA, DIAGNOSTIC 109.00 ng/mL High 0.00-4.00 [facility] [place] Comment on above: Result Comment: This test was performed using the [employer] tPSA method. Measured values of a patient??sample can vary depending on the testing procedure used. PSA values determined on patient samples by different testing procedures cannot be used interchangeably. If there is a change in PSA assays while monitoring therapy, sequential testing should be performed to confirm baseline values. Performed By: #### L 501.9940 #### [facility] Laboratory [address] [place], [address] Diagnostic total prostate sp ecific antigen (PSA) measurementOrdered By: Marii Garza on 07-28-2024 Prostate Specific Antigen Total 55.30 ng/mL High 0.00-4.00 [facility] [place] Comment on above: This test was perfor med using the [employer] tPSA method. Measured values of a patient sample can vary depending on the testing procedure used. PSA values determined on patient samples by different testing procedures cannot be used interchangeably. If there is a change in PSA assays while monitoring therapy, sequential testing should be performed to confirm baseline values. PSA,Total- [facility] 07-19 PSA, DIAGNOSTIC 55.30 ng/mL High 0.00-4.00 [facility] [place] Comment on above: Result Comment: This test was performed using the [employer] tPSA method. Measured values of a patient??sample can vary depending on the testing procedure used. PSA values determined on patient samples by different testing procedures cannot be used interchangeably. If there is a change in PSA assays while monitoring therapy, sequential testing should be performed to confirm baseline values. Performed By: #### L 501.9940 #### [facility] Laboratory [address] [place], [address] Diagnostic total prostate sp ecific antigen (PSA) measurementOrdered By: Rosales Amezquita on 04-29-2024 Prostate Specific Antigen Total 72.90 ng/mL High 0.0-4.0 [facility] Comment on above: This test was perfor med using the TPSA assay method for thetest company chemistry system. Values obtained with differentassay methods cannot be used interchangably.When changing PSA assays in the course of monitoring apatient, additional sequential testing should be carriedout to confirm baseline values. PSA,Total- [facility] 04-20 PSA, DIAGNOSTIC 72.90 ng/mL High 0.0-4.0 [facility] Comment on above: Result Comment: This test was performed using the TPSA assay method for the test company chemistry system. Values obtained with different assay methods cannot be used interchangably. When changing PSA assays in the course of monitoring a patient, additional sequential testing should be carried out to confirm baseline values. Performed By: #### L 501.9940 #### [facility] Laboratory [address] [place], [address] 12 Lead EKGon 11-14-2023 12 Lead EKG [facility] Cardiovascular Services [address] [place] [address] 12 Lead EKG 11/14/23 1310 MR#: [id number] Acct: [id number] Name: RAE ELLIOTT Rep #: [id number] : 1950 73 From: Yadira Antonio MD Attending Dr: Status: DEP ER Ordering Dr: Umang Ruiz Date: 11/14/23 Location: ED Sex: M C Admitted: Test Reason : SYNCOPE Blood Pressure : / mmHG Vent. Rate : 061 BPM Atrial Rate : 061 BPM P-R Int : 094 ms QRS Dur : 082 ms QT Int : 456 ms P-R-T Axes : 000 024 030 degrees QTc Int : 459 ms Sinus rhythm with sinus arrhythmia with short W[place] Otherwise normal ECG Confirmed by KY RICK, LESLEY ([id number]), editor continuity and script FLORENTIN SHEPHERD ([id number]) on 11/17/2023 2:14:57 PM Referred By: Confirmed By:SEPIDEH ANTONIO MD 11/17/23 1414 Date Yadira Antonio MD CC: MADELINE Ruiz; Dr. Camilo Quiles DO; Dr. Aguilar Greenfield DO Signed Normal [facility] [place] Basic Metabolic Profile (BMP )on 11-14-2023 BUN/CRE 22.1 RATIO High 10-20 [facility] [place] Comment on above: Order Comment: 'TROP ' Serial specimen #1, #2 or #3: 1 Performed By: #### L 500.2500, L501.4020, L100.0100 #### [facility] [place] Laboratory [address] [place], [address] CA,Total 9.2 mg/dL Normal 8.5-10.1 [facility] [place] Comment on above: Order Comment: 'TROP ' Serial specimen #1, #2 or #3: 1 Performed By: #### L 500.2500, L501.4020, L100.0100 #### [facility] [place] Laboratory [address] [place], [address] Chloride [Moles/Vol] 110 mmol/L High 98-107 [facility] Comment on above: Order Comment: 'TROP ' Serial specimen #1, #2 or #3: 1 Performed By: #### L 500.2500, L501.4020, L100.0100 #### [facility] Laboratory [address] [place], [address] CO2 [Moles/Vol] 27.0 mmol/L Normal 21.0-32.0 [facility] Comment on above: Order Comment: 'TROP ' Serial specimen #1, #2 or #3: 1 Performed By: #### L 500.2500, L501.4020, L100.0100 #### [facility] Laboratory [address] [place], [address] Creatinine [Mass/Vol] 1.13 mg/dL Normal 0.70-1.30 [facility] Comment on above: Order Comment: 'TROP ' Serial specimen #1, #2 or #3: 1 Result Comment: The validity of the calculated GFR GFRAA in patients over 70 years has not been determined. Clinical correlation is essential. Performed By: #### L 500.2500, L501.4020, L100.0100 #### [facility] Laboratory [address] [place], [address] ECRCL 61.91 ml/min Normal [facility] Comment on above: Order Comment: 'TROP ' Serial specimen #1, #2 or #3: 1 Performed By: #### L 500.2500, L501.4020, L100.0100 #### [facility] Laboratory [address] [place], [address] EST GFR - AA 82 mL/min Normal >60 [facility] Comment on above: Order Comment: 'TROP ' Serial specimen #1, #2 or #3: 1 Result Comment: Afri can Cymro GFR Calc Performed By: #### L 500.2500, L501.4020, L100.0100 #### [facility] Laboratory [address] [place], [address] GAP 3 Low 5-15 [facility] Comment on above: Order Comment: 'TROP ' Serial specimen #1, #2 or #3: 1 Performed By: #### L 500.2500, L501.4020, L100.0100 #### [facility] Laboratory [address] [place], [address] GFR/1.73 sq M.predicted among non-blacks MDRD (S/P/Bld) [Vol rate/Area] 68 mL/min/{1.73_m2} Normal >60 [facility] Comment on above: Order Comment: 'TROP ' Serial specimen #1, #2 or #3: 1 Result Comment: Non- GFR Calc Performed By: #### L 500.2500, L501.4020, L100.0100 #### [facility] Laboratory [address] [place], [address] Glucose [Mass/Vol] 126 mg/dL High 74-106 [facility] Comment on above: Order Comment: 'TROP ' Serial specimen #1, #2 or #3: 1 Result Comment: Fast ing Glucose result greater than or equal to 126 mg/dL suggests DIABETES MELLITUS per A.D.A. criteria. Performed By: #### L 500.2500, L501.4020, L100.0100 #### [facility] Laboratory [address] [place], [address] Potassium [Moles/Vol] 4.0 mmol/L Normal 3.5-5.1 [facility] Comment on above: Order Comment: 'TROP ' Serial specimen #1, #2 or #3: 1 Performed By: #### L 500.2500, L501.4020, L100.0100 #### [facility] Laboratory [address] [place], [address] Sodium [Moles/Vol] 140 mmol/L Normal 136-145 [facility] Comment on above: Order Comment: 'TROP ' Serial specimen #1, #2 or #3: 1 Performed By: #### L 500.2500, L501.4020, L100.0100 #### [facility] Laboratory [address] [place], [address] Urea nitrogen [Mass/Vol] 25 mg/dL High 7-18 [facility] Comment on above: Order Comment: 'TROP ' Serial specimen #1, #2 or #3: 1 Performed By: #### L 500.2500, L501.4020, L100.0100 #### [facility] Laboratory [address] [place], [address] CBC W/Diff, Automatedon 07-2 -2023 Absolute Lymph 1.05 X10 3/uL Normal 0.83-4.51 [facility] Comment on above: Performed By: #### L 500.2500, L501.4020, L100.0100 #### [facility] Laboratory [address] [place], [address] Absolute Neut 2.7 X10 3/uL Normal 2.0-7.7 [facility] Comment on above: Performed By: #### L 500.2500, L501.4020, L100.0100 #### [facility] Laboratory [address] [place], [address] Basophils/100 WBC (Bld) 0.5 % Normal 0-1 [facility] Comment on above: Performed By: #### L 500.2500, L501.4020, L100.0100 #### [facility] Laboratory [address] [place], [address] Eosinophils/100 WBC (Bld) 1.8 % Normal 0-5 [facility] Comment on above: Performed By: #### L 500.2500, L501.4020, L100.0100 #### [facility] Laboratory [address] [place], [address] Erythrocyte distribution width (RBC) [Ratio] 12.8 % Normal 11.6-14.6 [facility] Comment on above: Performed By: #### L 500.2500, L501.4020, L100.0100 #### [facility] Laboratory [address] [place], [address] Hematocrit (Bld) [Volume fraction] 36.9 % Low 40-54 [facility] Comment on above: Performed By: #### L 500.2500, L501.4020, L100.0100 #### [facility] Laboratory [address] [place], [address] Hemoglobin (Bld) [Mass/Vol] 12.0 g/dL Low 13.0-16.5 [facility] Comment on above: Performed By: #### L 500.2500, L501.4020, L100.0100 #### [facility] Laboratory [address] [place], [address] IG% 0.700 Normal 0.0-0.9 [facility] Comment on above: Result Comment: IG% - Immature Granulocytes (promyelocytes, myelocytes and metamyelocytes) > 1% indicates that a LEFT SHIFT is Present. Performed By: #### L 500.2500, L501.4020, L100.0100 #### [facility] Laboratory [address] [place], [address] Lymphocytes/100 WBC (Bld) 24.0 % Normal 19-41 [facility] Comment on above: Performed By: #### L 500.2500, L501.4020, L100.0100 #### [facility] Laboratory [address] [place], [address] MCH (RBC) [Entitic mass] 28.8 pg Normal 27.0-32.0 [facility] Comment on above: Performed By: #### L 500.2500, L501.4020, L100.0100 #### [facility] Laboratory [address] [place], [address] MCHC (RBC) [Mass/Vol] 32.5 g/dL Normal 32-36 [facility] Comment on above: Performed By: #### L 500.2500, L501.4020, L100.0100 #### [facility] Laboratory [address] [place], [address] MCV (RBC) [Entitic vol] 88.7 fL Normal 80-94 [facility] Comment on above: Performed By: #### L 500.2500, L501.4020, L100.0100 #### [facility] Laboratory [address] [place], [address] Monocytes/100 WBC (Bld) 11.0 % High 0-10 [facility] Comment on above: Performed By: #### L 500.2500, L501.4020, L100.0100 #### [facility] Laboratory [address] [place], [address] Neutrophils/100 WBC (Bld) 62.0 % Normal 47-70 [facility] Comment on above: Performed By: #### L 500.2500, L501.4020, L100.0100 #### [facility] Laboratory [address] [place], [address] Nucleated RBC (Bld) [#/Vol] 0 10*3/uL Normal 0-5 [facility] Comment on above: Performed By: #### L 500.2500, L501.4020, L100.0100 #### [facility] Laboratory [address] [place], [address] Platelet mean volume (Bld) [Entitic vol] 9.2 fL Normal 6.2-12.0 [facility] Comment on above: Performed By: #### L 500.2500, L501.4020, L100.0100 #### [facility] Laboratory [address] [place], [address] Platelets (Bld) [#/Vol] 187 10*3/uL Normal 150-450 [facility] Comment on above: Performed By: #### L 500.2500, L501.4020, L100.0100 #### [facility] Laboratory [address] [place], [address] RBC (Bld) [#/Vol] 4.16 10*6/uL Low 4.6-6.2 [facility] Comment on above: Performed By: #### L 500.2500, L501.4020, L100.0100 #### [facility] Laboratory [address] [place], [address] RDW SD 41.8 fl Normal 35.1-43.9 [facility] Comment on above: Performed By: #### L 500.2500, L501.4020, L100.0100 #### [facility] Laboratory [address] [place], [address] WBC (Bld) [#/Vol] 4.4 10*3/uL Normal 4.4-11.0 [facility] Comment on above: Performed By: #### L 500.2500, L501.4020, L100.0100 #### [facility] Laboratory [address] [place], [address] Chest PA and Lateralon 11-13 Chest PA and Lateral [facility] Imaging Services [address] [place] [address] Chest PA and Lateral MR#: [id number] Acct: [id number] Name: RAE ELLIOTT Rep #: [id number] : 1950 M 73 From: Tanya chanel MD PCP: Dr. Aguilar Greenfield DO Status: REG ER Study: Chest PA and Lateral Date of Exam: 11/14/23 Exam# [id number] Ordering Dr: Umang Ruiz [employer]BMARINE ADVISORY TEAM WATCH OFFICER-C [id number] HISTORY: cough. TECHNIQUE: XR Chest 2 Views. COMPARISON: None. FINDINGS: CARDIOMEDIASTINAL BORDERS: Cardiac silhouette within normal limits in size. Mediastinal contour unremarkable. LUNGS: Mild linear bibasilar opacities. PLEURA: No pleural effusion or pneumothorax seen. OSSEOUS STRUCTURES: Degenerative change. RAD/Chest PA and Lateral IMPRESSION: Mild bibasilar atelectasis or inflammation. Electronically Signed: Tanya Shaver MD at 14:04 EDT , CC: SUBMARINE ADVISORY TEAM WATCH OFFICER-Segundo Ruiz; Dr. Aguilar Greenfield DO Pelts Skinner: Signed Normal [facility] Emergency Department Summary on 11-14-2023 Emergency Department Summary [facility] Medical Records Department [address] [place] [address] Emergency Department Summary 11/14/23 MR#: [id number] Acct: [id number] Name: RAE ELLIOTT Rep #: [id number] : 1950 73 From: Umang CORREA PCP: Dr. Aguilar Greenfield, DO Status:DEP ER Location: ED HPI History of Present Illness Chief Complaint: Syncope Narrative Narrative: Patient is a 73-year-old male with history of prostate cancer who is currently being treated by [facility] and also goes to [place] and receives treatment there. Patient states he currently has an implant in from the [place] clinic. Patient states today, he was able to [...] Denies any chest pain, shortness of breath. [facility] Medical History (Updated 11/14/23 @ 14:58 by Umang Ruiz NP-Segundo) Prostate cancer Home Medications ???Medication ???Instructions ???Recorded [...] Mean 92 (more content not included)... Normal [facility] L501.4020on 11-14-2023 TROPONIN-I HS 7 pg/mL Normal 3.0-78.0 [facility] Comment on above: Order Comment: 'TROP ' Serial specimen #1, #2 or #3: 1 Result Comment: Roque hernandez Note: New Test Units and Gender Specific Reference Ranges. For more information see Policy Stat Procedure [place] High Sensitivity Troponin (TNIH) and attachments. Performed By: #### L 500.2500, L501.4020, L100.0100 #### [facility] Laboratory [address] [place], [address] Urinalysis, Completeon 11-13 WBC 0-5 SEEN Normal 0-5 [facility] Comment on above: Order Comment: CLEAN CATCH Performed By: #### L 400.0001 #### [facility] Laboratory [address] [place], [address] BACTERIA 0 SEEN Normal None Seen [facility] Comment on above: Order Comment: CLEAN CATCH Performed By: #### L 400.0001 #### [facility] Laboratory [address] [place], [address] EPI,SQUAMOUS 0 SEEN Normal 0-5 [facility] Comment on above: Order Comment: CLEAN CATCH Performed By: #### L 400.0001 #### [facility] Laboratory [address] [place], [address] Mucus Ql (Urine sed) 0 SEEN Normal [facility] Comment on above: Order Comment: CLEAN CATCH Performed By: #### L 400.0001 #### [facility] Laboratory [address] [place], [address] RBC 0 SEEN Normal 0-5 [facility] Comment on above: Order Comment: CLEAN CATCH Performed By: #### L 400.0001 #### [facility] Laboratory [address] [place], [address] Basophil percentageOrdered B y: Rosales Amezquita on 08-15-2023 Basophil percentage 94.80 ng/mL 0.0-4.0 [facility] Comment on above: This test was perfor med using the TPSA assay method for thetest company chemistry system. Values obtained with differentassay methods cannot be used interchangably.When changing PSA assays in the course of monitoring apatient, additional sequential testing should be carriedout to confirm baseline values. Chloride [Moles/Vol] 107 mmol/L 98-107 [facility] Glucose [Mass/Vol] 101 mg/dL 74-106 [facility] Comment on above: Fasting Glucose resu lt from 100 to 125 mg/dL suggests IMPAIRED HOMEOSTASIS per A.D.A. criteria. Hemoglobin (Bld) [Mass/Vol] 12.6 g/dL 13.0-16.5 [facility] Potassium [Moles/Vol] 4.0 mmol/L 3.5-5.1 [facility] Sodium [Moles/Vol] 138 mmol/L 136-145 [facility] WBC (Bld) [#/Vol] 5.5 10*3/uL 4.4-11.0 [facility] Determination of erythrocyte mean corpuscular volume (MCV)Ordered By: Rosales Amezquita on 08-15-2023 MCV (RBC) [Entitic vol] 87.1 fL 80-94 [facility] Erythrocyte distribution wid th ratioOrdered By: Rosales Amezquita on 08-15-2023 Erythrocyte distribution width (RBC) [Ratio] 13.2 % 11.6-14.6 [facility] Erythrocyte distribution wid th standard deviationOrdered By: Rosales Amezquita on 08-15-2023 Erythrocyte distribution width (RBC) [Entitic vol] 41.9 fL 35.1-43.9 [facility] Hematocrit Auto (Bld) [Volum e fraction]Ordered By: Rosales Amezquita on 08-15-2023 Hematocrit (Bld) [Volume fraction] 39.2 % 40-54 [facility] Laboratory - Chemistry and C hemistry - challengeOrdered By: Rosales Amezquita on 08-15-2023 CO2 [Moles/Vol] 27.0 mmol/L 21.0-32.0 [facility] Urea nitrogen/Creatinine [Mass ratio] 27.6 mg/mg 10-20 [facility] Laboratory - Hematology and Cell countsOrdered By: Rosales Amezquita on 08-15-2023 MCH (RBC) [Entitic mass] 28.0 pg 27.0-32.0 [facility] MCHC (RBC) [Mass/Vol] 32.1 g/dL 32-36 [facility] Platelet mean volume (Bld) [Entitic vol] 9.8 fL 6.2-12.0 [facility] Platelets (Bld) [#/Vol] 239 10*3/uL 150-450 [facility] No Panel InformationOrdered By: Rosales Amezquita on 08-15-2023 Estimated GFR (MDRD) Amer 97 mL/min >60 [facility] [place] Comment on above: GFR Calc Estimated GFR (MDRD) Non-Af Amer 80 mL/min >60 [facility] [place] Comment on above: Non- GFR Calc RBC Auto (Bld) [#/Vol]Ordere d By: Rosales Amezquita on 08-15-2023 RBC (Bld) [#/Vol] 4.50 10*6/uL 4.6-6.2 [facility] Serum or plasma calcium jose urement (mass/volume)Ordered By: Rosales Amezquita on 08-15-2023 Calcium [Mass/Vol] 9.1 mg/dL 8.5-10.1 [facility] Serum or plasma creatinine m easurement (mass/volume)Ordered By: Rosales Amezquita on 08-15-2023 Creatinine [Mass/Vol] 0.98 mg/dL 0.70-1.30 [facility] Comment on above: The validity of the calculated GFR & GFRAA in patients over 70 years has not been determined. Clinical correlation is essential. Serum or plasma urea nitroge n measurement (mass/volume)Ordered By: Rosales Amezquita on 08-15-2023 Urea nitrogen [Mass/Vol] 27 mg/dL 7-18 [facility] [place] Thin prep Papanicolaou smear with manual screeningOrdered By: Rosales Amezquita on 08-15-2023 Thin prep Papanicolaou smear with manual screening 4 5-15 [facility] Final Surgical Pathology Rep patience 08-11-2023 Final Surgical Pathology Report . Pathology Reports Accession: Collected Date/Time: Received Date/Time: Pathologist: [id number] 08/07/2023 16:57 EDT 08/10/2023 07:51 EDT J CARLOS SHAVER MD Final Surgical Pathology Report DIAGNOSIS: A. RECTUM, BIOPSY: - MILD MELANOSIS COLI B. ASCENDING AND DESCENDING COLON, BIOPSY: - MILD MELANOSIS COLI CLINICAL INFORMATION: COLONOSCOPY WITH BIOPSIES Procedure: COLONOSCOPY Preoperative diagnosis: DIARRHEA/RECTAL DISCHARGE Postoperative diagnosis: DIARRHEA/COLITIS SPECIMEN: A RECTUM B ASCENDING AND DESCENDING COLON GROSS DESCRIPTION: All parts labelled with patient name and [id number] A. Received in formalin labeled "rectum biopsies" are 5 dodge tissue fragments measuring less than 0.1 to 0.2 cm. Smallest fragment may not survive processing. TS-1 B. Received in formalin labeled ascending and descending colon biopsies" are multiple dodge tissue fragments aggregating 1.6 x 0.2 x 0.1 cm. TS-1 Swathi Garza, Grossing Laborer [employer]/ Dr. J Carlos Shaver, Pathologist Dictated by Swathi Garza MICROSCOPIC DESCRIPTION: The microscopic examination is performed, except in the case of Gross Only. Electronically Signed by Pathology Report verified by [facility] J CARLOS SHAVER Sign out Date: 08/11/2023 11:07 Performing Lab: [facility], [address] [place] [address] Pathology Dept Disclaimer If ancillary studies were utilized, the following Laboratory Developed Test (LDT) disclaimer will apply: Under CLIA requirements, [facility] is qualified to perform high complexity testing. For all ancillary stains, positive and negative controls stain appropriately. Performance characteristics of immunohistochemical and chromogenic in-situ hybridization tests have been determined by [facility]. These tests are used for clinical purposes, They should not be regarded as investigational or for research. Normal [facility] ([place]) Basophil percentageOrdered B y: Rosales Amezquita on 06-08-2023 Basophil percentage 512.00 ng/mL 0.0-4.0 [facility] Comment on above: This test was perfor med using the TPSA assay method for the[employer] chemistry system. Values obtained with differentassay methods cannot be used interchangably.When changing PSA assays in the course of monitoring apatient, additional sequential testing should be carriedout to confirm baseline values. PSA, TOTALon 02-11-2023 PSA, TOTAL 517.20 ng/mL High < OR = 4.00 [facility] [...] By: #### [id number] #### [facility] [address], [address] [place] [id number] Yard Coordinator: Gerard Maldonado MD PSA, TOTALon 01-22-2023 PSA, [...] disease. Performed By: #### [id number] #### [facility] [address], [address] [place] [phone] Yard Coordinator: Gerard Maldonado MD XR HIP 2-3 VIEWS [...] 09/29/2022 2:24:11 AM Ordering Provider: AGUILAR GREENFIELD [facility] ([place]) XR SHOULDER MINIMUM 2 VIEWS LEFTon 09-29-2022 [...] Date: 09/29/2022 2:22:15 AM Ordering Provider: AGUILAR GREENFIELD [facility] ([place]) PSA, TOTALon 09-03-2022 PSA, TOTAL 236.16 ng/mL High < OR = 4.00 [facility] Comment on above: Order Comment: FASTI NG: UNKNOWN Result Comment: The total PSA value from this assay system is standardized against the WHO standard. The test result will be approximately 20% lower when compared to the equimolar-standardized total PSA (Stanton Whitman). Comparison of serial PSA results should be interpreted with this fact in mind. This test was performed using the Siemens chemiluminescent method. Values obtained from different assay methods cannot be used interchangeably. PSA levels, regardless of value, should not be interpreted as absolute evidence of the presence or absence of disease. Performed By: #### [id number] #### [facility] [address], [address] [place], [place] [phone] Yard Coordinator: Gerard Maldonado MD PSA, TOTALon 05-08-2022 PSA, TOTAL 177.76 ng/mL High < OR = 4.00 [facility] Comment on above: Order Comment: FASTI NG: NO Result Comment: The total PSA value from this assay system is standardized against the WHO standard. The test result will be approximately 20% lower when compared to the equimolar-standardized total PSA (Stanton Whitman). Comparison of serial PSA results should be interpreted with this fact in mind. This test was performed using the Siemens chemiluminescent method. Values obtained from different assay methods cannot be used interchangeably. PSA levels, regardless of value, should not be interpreted as absolute evidence of the presence or absence of disease. Performed By: #### [id number] #### [facility] [address], [address] [place] [phone] Yard Coordinator: Gerard Maldonado MD Basophil percentageon 2021 Chloride [Moles/Vol] 104 mmol/L 98-107 [facility] Work Phone: Glucose [Mass/Vol] 95 mg/dL 74-106 [facility] Work Phone: Potassium [Moles/Vol] 4.3 mmol/L 3.5-5.1 March ster [facility] Work Phone: Sodium [Moles/Vol] 138 mmol/L 136-145 [facility] Work [facility]: WBC (Bld) [#/Vol] 4.6 10*3/uL 4.4-11.0 [facility] Work Phone: Blood erythrocytes count (nu mber/volume)on 12-16-2021 RBC (Bld) [#/Vol] 4.54 10*6/uL 4.6-6.2 [facility] Work Phone: Blood hemoglobin measurement (mass/volume)on 12-16-2021 Hemoglobin (Bld) [Mass/Vol] 13.2 g/dL 13.0-16.5 [facility] [place] Work Phone: Blood platelet mean volumeon 12-16-2021 Platelet mean volume (Bld) [Entitic vol] 9.6 fL 6.2-12.0 [facility] Work Phone: Determination of erythrocyte mean corpuscular volume (MCV)on 12-16-2021 MCV (RBC) [Entitic vol] 90.3 fL 80-94 [facility] [place] Work Phone: Hematocrit Auto (Bld) [Volum e fraction]on 12-16-2021 Hematocrit (Bld) [Volume fraction] 41.0 % 40-54 [facility] [place] Work Phone: Laboratory - Chemistry and C hemistry - challengeon 12-16-2021 CO2 [Moles/Vol] 29.0 mmol/L 21.0-32.0 [facility] Work Phone: Urea nitrogen/Creatinine [Mass ratio] 21.0 mg/mg 10-20 [facility] [place] Work Phone: Laboratory - Hematology and Cell countson 12-16-2021 Erythrocyte distribution width (RBC) [Entitic vol] 41.8 fL 35.1-43.9 [facility] Work Phone: Erythrocyte distribution width (RBC) [Ratio] 12.7 % 11.6-14.6 [facility] Work Phone: MCH (RBC) [Entitic mass] 29.1 pg 27.0-32.0 [facility] Work Phone: MCHC Auto (RBC) [Mass/Vol]on 12-16-2021 MCHC (RBC) [Mass/Vol] 32.2 g/dL 32-36 [facility] Work Phone: No Panel Informationon 12-16 Estimated GFR (MDRD) Amer 114 mL/min >60 [facility] Work Phone: Comment on above: GFR Calc Estimated GFR (MDRD) Non-Af Amer 94 mL/min >60 [facility] Work Phone: Comment on above: Non- GFR Calc Platelets bldon 12-16-2021 Platelets (Bld) [#/Vol] 234 10*3/uL 150-450 [facility] Work Phone: Serum or plasma calcium jose urement (mass/volume)on 12-16-2021 Calcium [Mass/Vol] 8.6 mg/dL 8.5-10.1 [facility] Work Phone: Serum or plasma creatinine m easurement (mass/volume)on 12-16-2021 Creatinine [Mass/Vol] 0.86 mg/dL 0.70-1.30 [facility] Work Phone: Comment on above: The validity of the calculated GFR & GFRAA in patients over 70 years has not been determined. Clinical correlation is essential. Serum or plasma urea nitroge n measurement (mass/volume)on 12-16-2021 Urea nitrogen [Mass/Vol] 18 mg/dL 7-18 [facility] Work Phone: Thin prep Papanicolaou smear with manual screeningon 12-16-2021 Thin prep Papanicolaou smear with manual screening 5 5-15 [facility] Work Phone: Encounters Encounter Date Encounter Type Care Provider Facility Start: 11-05-2024 ambulatory Rosales Sanchezi lity:[facility] Start: 07-28-2024 End: 07-28-[address] Aguilar Greenfield DO Work Phone: [facility] Work Phone: Start: 07-28-2024 End: 07-28-2024 Patient encounter procedure Marii Garza -Laboratory Work Phone: Start: 07-28-2024 End: 07-28-2024 ambulatory Aguilar Greenfield Facility:[facility] Start: 04-29-2024 End: 04-29-[address] Rosales Amezquita MD -Laboratory Work Phone: Start: 04-29-2024 End: 04-29-2024 ambulatory Rosales Amezquita Facility:[facility] [place] Start: 11-14-2023 End: 11-14-2023 Emergency department patient visit Camilo Quiles Facility:[facility] [place] Start: 08-15-2023 End: 08-15-2023 ambulatory [facility] Work Phone: Start: 08-15-2023 End: 08-15-2023 Patient encounter procedure [facility]-Laboratory Work Phone: Start: 08-07-2023 End: 08-12-[address] MARIUM ALVES MD Facility:B Start: 06-16-2023 End: 06-16-2023 ambulatory [facility] Work Phone: Start: 06-16-2023 End: 06-16-2023 Patient encounter procedure [facility] Start: 06-08-2023 End: 06-08-2023 ambulatory [facility] Work Phone: Start: 06-08-2023 End: 06-08-2023 Patient encounter procedure [facility]-Laboratory Work Phone: Start: 09-27-2022 End: 09-28-2022 ambulatory LISY SENA Facility:[facility] Start: 12-16-2021 End: 12-16-2021 ambulatory [facility] Work Phone: Start: 12-16-2021 End: 12-16-2021 Patient encounter procedure [facility]-Pulmonary Services/Neurology Procedures Date Procedure Procedure Detail Performing Clinician Start: 06-16-[address] of whole body Payers Date Payer Category Payer Self-pay [id number] 2022 Unknown [id number] 1950 Unknown [id number] [id number] [id number] 1950 Unknown [id number] [id number] [id number] Medicare MEDICARE PART A B [id number] Unknown [id number] 2.16.8 [id number] Unknown [id number] 2.16.8 [id number] Unknown [id number] 2.16.8 [id number] Unknown [id number] 2.16.8 [id number] Social History Date Type Detail Facility Tobacco smoking stat [facility] Unknown if ever smoked [facility] Work Phone: Start: 1950 Sex Assigned At Male [facility] Start: 11-14-2023 Tobacco smoking stat [facility] Never smoked tobacco (finding) [facility] Start: 08-02-2024 Sex Male (finding) [facility] Evaluation note Note Date & Type Note Facility Evaluation note No assessment information availa ble [facility] Work Phone: Reason for referral (narrative) Note Date & Type Note Facility Reason for referral (narrative) No reason for referral information available [facility] Work Phone: Chief Complaint and Reason for [...] CREATED AUTHOR AUTHOR'S ORGANIZ ATION 08/14/2023 [facility] DATE CREATED AUTHOR AUTHOR'S ORGANIZ ATION 11/08/[address] [facility] Care Teams (unrecognized sec tion and content) [...] 28, 2024 End: July 28, 2024 Marii Garza Attending Provider Active Start : July 28, [...] BE BASED ON THE PRIMARY CLINICAL RECORDS. [employer] provides no warranty or guarantee of the accuracy or completeness of information in this document.
== END | disposition home or self-care (01) ==
LOC: LAB 09:45
PROVIDERS: PCP Family Medicine; Referring Provider Nurse Practitioner; Visit Provider Nurse Practitioner
DX: C61 Malignant neoplasm of prostate (principal)
CPT/HCPCS: 36415; 84403

== ENCOUNTER 2025-02-11 09:28 | Outpatient (CLI) | payer MEDICARE, SELFPAY ==
[2025-02-11 11:10] LABS: PSA,Total- Diagnostic 149.00 ng/mL (0.00-4.00)
== END 2025-02-11 23:59 | disposition home or self-care (01) ==
LOC: LAB 09:31
PROVIDERS: PCP Family Medicine; Referring Provider Urology; Visit Provider Urology
DX: C61 Malignant neoplasm of prostate (principal)
CPT/HCPCS: 36415; 84153; 84403